=== PATIENT | female | born 1985 | race Caucasian/White ===

== ENCOUNTER 2023-03-27 14:18 | Inpatient (IN) | payer MEDICARE ==
[2023-03-27] MEDS ORDERED: HYDROCORTISONE SUCCINATE 100 MG/2 ML VIAL IV STA ×2 (14:43→15:16)
[2023-03-27 15:37] LABS: ALT 33 U/L (4-34); AST 37 U/L (14-36); African American GFR (CKD) >90 (>60 ml/min/1.73 sqM); Albumin 4.3 g/dL (3.5-5.0); Alcohol <10 mg/dL; Alkaline Phosphatase 82 U/L (38-126); Anion Gap 14 mmol/L; Blood Urea Nitrogen 12 mg/dL (7-17); Calcium 9.6 mg/dL (8.4-10.2); Carbon Dioxide 16 mmol/L (22-30); Chloride 108 mmol/L (98-107); Creatine Kinase 53 U/L (30-135); Glucose 132 mg/dL (74-99); Magnesium 1.3 mg/dL (1.6-2.3); Non-African American GFR(CKD) >90 (>60 ml/min/1.73 sqM); Potassium 3.9 mmol/L (3.5-5.1); Sodium 138 mmol/L (137-145); Total Protein 7.5 g/dL (6.3-8.2)
[2023-03-27 15:45] LABS: Basophils % (A) 0 %; Eosinophils % (A) 0 %; HCT 47.8 % (34.0-46.0); HGB 16.1 gm/dL (11.4-16.0); Lymphocytes # (A) 0.2 k/uL (1.0-4.8); Lymphocytes % (A) 3 %; MCH 30.8 pg (25.0-35.0); MCHC 33.7 g/dL (31.0-37.0); MCV 91.4 fL (80.0-100.0); Mean Platelet Volume 7.6; Monocytes # (A) 0.2 k/uL (0-1.0); Monocytes % (A) 3 %; Neutrophils # (A) 6.8 k/uL (1.3-7.7); Neutrophils % (A) 94 %; Platelet Count 292 k/uL (150-450); RBC 5.23 m/uL (3.80-5.40); RDW 15.6 % (11.5-15.5); WBC 7.3 k/uL (3.8-10.6)
--- NOTE | 2023-03-27 15:55 | XR ---
EXAMINATION TYPE: XR chest 2V DATE OF EXAM: 03/27/2023 3:27 PM CLINICAL INDICATION:Female, 37 years old with history of Weakness; PHH COMPARISON: None TECHNIQUE: XR chest 2V Frontal and lateral views of the chest. FINDINGS: Lungs/Pleura: There is no evidence of pleural effusion, focal consolidation, or pneumothorax. Pulmonary vascularity: Unremarkable. Heart/mediastinum: Cardiomediastinal silhouette is unremarkable. Musculoskeletal: No acute osseous pathology. IMPRESSION: No acute cardiopulmonary disease/process.
[2023-03-27 16:29] LABS: Toxic Vacuolation Present
--- NOTE | 2023-03-27 16:30 | ED ---
Weakness HPI - General Chief complaint: Weakness Stated complaint: MS Exacerbation Time Seen by Provider: 03/27/23 14:25 Source: patient, RN notes reviewed Mode of arrival: EMS - History of Present Illness Initial comments: 37-year-old female history of multiple sclerosis who states she had the onset this morning of generalized weakness and numbness to both upper and lower extr emities. She denies any fevers chills sweats or dysuria or other symptoms but she does feel this is exacerbation of her MS. No trauma no other complaints this time patient states she is from out [facility] Complaint: generalized weakness, numbness - Related Data Home Medications Medication Instructions Recorded Confirmed DULoxetine HCL [Cymbalta] 120 mg PO DAILY 03/27/23 03/27/23 Allergies Allergy/AdvReac Type Severity Reaction Status Date / Time acetaminophen AdvReac Rapid Verified 03/27/23 20:05 [From Excedrin Extra Heart Rate Strength] aspirin AdvReac Rapid Verified 03/27/23 20:05 [From Excedrin Extra Heart Rate Strength] caffeine AdvReac Rapid Verified 03/27/23 20:05 [From Excedrin Extra Heart Rate Strength] oseltamivir [From Tamiflu] AdvReac Rapid Verified 03/27/23 20:05 Heart Rate Review of Systems ROS Statement: Those systems with pertinent positive or pertinent negative responses have been documented in the HPI. ROS Other: All systems not noted in ROS Statement are negative. Past Medical History Additional Past Medical History / Comment(s): MS Past Surgical History: Section Additional Past Surgical History / Comment(s): hernia Past Psychological History: Anxiety, Depression Smoking Status: Current every day smoker Past Alcohol Use History: Rare Past Drug Use History: Heroin General Exam - General Exam Comments Initial Comments: Is a well-developed obese female who is awake alert but lethargic General appearance: alert, lethargic Head exam: Present: atraumatic, normocephalic, normal inspection Eye exam: Present: normal appearance, PERRL, EOMI. Absent: scleral icterus, conjunctival injection, periorbital swelling ENT exam: Present: mucous membranes dry Neck exam: Present: normal inspection, full ROM, other. Absent: tenderness, meningismus, lymphadenopathy Respiratory exam: Present: normal lung sounds bilaterally. Absent: respiratory distress, wheezes, rales, rhonchi, stridor Cardiovascular Exam: Present: normal rhythm, tachycardia (ALLERGYorbruits), normal heart sounds. Absent: systolic murmur, diastolic murmur, rubs, gallop, clicks GI/Abdominal exam: Present: soft, normal bowel sounds. Absent: distended, tenderness, guarding, rebound, rigid Extremities exam: Present: normal inspection, full ROM, normal capillary refill. Absent: tenderness, pedal edema, joint swelling, calf tenderness Back exam: Present: normal inspection Neurological exam: Present: alert, oriented X3, CN II-XII intact, other (Patient states her extremities are weak but she was noted by nursing staff to be able to move all extremities) Psychiatric exam: Present: normal mood, flat affect Skin exam: Present: warm, dry, intact, normal color. Absent: rash Course Vital Signs 03/27/23 03/27/23 14:21 17:00 Temperature 98.6 F Pulse Rate 113 H Respiratory 18 16 Rate Blood Pressure 125/80 121/89 O2 Sat by Pulse 95 Oximetry Medical Decision Making - Medical Decision Making I did discuss the findings with the patient and friend was present also with Dr. Kamara the patient does demonstrate evidence of acute exacerbation of multiple sclerosis she will be admitted for inpatient evaluation and treatment.Was pt. sent in by a medical professional or institution (, PA, EVENT SPECIALIST FOOD DEMONSTRATOR, urgent care, hospital, or penitentiary...) When possible be specific @ -No Did you speak to anyone other than the patient for history (EMS, parent, family, police, friend...)? What history was obtained from this source @ -Or medics upon arrival Did you review nursing and triage notes (agree or disagree)? Why? @ -I reviewed and agree with nursing and triage notes Were old charts reviewed (outside hosp., previous admission, EMS record, old EKG, old radiological studies, urgent care reports/EKG's, penitentiary records)? Report findings @ -No old charts were available. Differential Diagnosis (chest pain, altered mental status, abdominal pain women, abdominal pain men, vaginal bleeding, weakness, fever, dyspnea, syncope, headache, dizziness, GI bleed, back pain, seizure, CVA, palpatations, mental health, musculoskeletal)? @ -MS exacerbation EKG interpreted by me (3pts min.). @ -Not done X-rays interpreted by me (1pt min.). @ -None done CT interpreted by me (1pt min.). @ -None done U/S interpreted by me (1pt. min.). @ -None done What testing was considered but not performed or refused? (CT, X-rays, U/S, labs)? Why? @ -None What meds were considered but not given or refused? Why? @ -None Did you discuss the management of the patient with other professionals (professionals i.e. , PA, EVENT SPECIALIST FOOD DEMONSTRATOR, lab, RT, psych nurse, certified social workers in health care, concrete truck driver, teacher, chief green officer, immigration case manager)? Give summary @ -Dr. Kamara Was smoking cessation discussed for >3mins.? @ -No Was critical care preformed (if so, how long)? @ -No Were there social determinants of health that impacted care today? How? (Homelessness, low income, unemployed, alcoholism, drug addiction, transportation, low edu. Level, literacy, decrease access to med. care, [facility], rehab)? @ -No Was there de-escalation of care discussed even if they declined (Discuss DNR or withdrawal of care, Hospice)? DNR status @ -No What co-morbidities impacted this encounter? (DM, HTN, Smoking, COPD, CAD, Cancer, CVA, ARF, Chemo, Hep., AIDS, mental health diagnosis, sleep apnea, morbid obesity)? @ -None Was patient admitted / discharged? Hospital course, mention meds given and route, prescriptions, significant lab abnormalities, going to OR and other pert inent info. @ -hospital course the patient was admitted for inpatient IV steroids and evaluation Undiagnosed new problem with uncertain prognosis? @ -No Drug Therapy requiring intensive monitoring for toxicity (Heparin, Nitro, Insulin, Cardizem)? @ -No Were any procedures done? @ -No Diagnosis/symptom? @ -Acute exacerbation of multiple sclerosis, hypomagnesemia Acute, or Chronic, or Acute on Chronic? @ -Acute on chronic Uncomplicated (without systemic symptoms) or Complicated (systemic symptoms)? @ -Located Side effects of treatment? @ -No Exacerbation, Progression, or Severe Exacerbation? @ -No Poses a threat to life or bodily function? How? (Chest pain, [place], HI, pneumonia, PE, COPD, DKA, ARF, appy, cholecystitis, CVA, Diverticulitis, Homicidal, Suicidal, threat to staff... and all critical care pts) @ -Potential - Lab Data Result diagrams: 03/27/23 14:50 03/27/23 14:50 Lab Results 03/27/23 03/27/23 03/27/23 Range/Units 14:50 14:50 14:50 WBC 7.3 (3.8-10.6) k/uL RBC 5.23 (3.80-5.40) m/uL Hgb 16.1 H (11.4-16.0) gm/dL Hct 47.8 H (34.0-46.0) % MCV 91.4 (80.0-100.0) fL MCH 30.8 (25.0-35.0) pg MCHC 33.7 (31.0-37.0) g/dL RDW 15.6 H (11.5-15.5) % Plt Count 292 (150-450) k/uL MPV 7.6 Neutrophils % 94 % Lymphocytes % 3 % Monocytes % 3 % Eosinophils % 0 % Basophils % 0 % Neutrophils # 6.8 (1.3-7.7) k/uL Lymphocytes # 0.2 L (1.0-4.8) k/uL Monocytes # 0.2 (0-1.0) k/uL Eosinophils # 0.0 (0-0.7) k/uL Basophils # 0.0 (0-0.2) k/uL Manual Slide Review Performed Toxic Vacuolation Present Sodium 138 (137-145) mmol/L Potassium 3.9 (3.5-5.1) mmol/L Chloride 108 H (98-107) mmol/L Carbon Dioxide 16 L (22-30) mmol/L Anion Gap 14 mmol/L BUN 12 (7-17) mg/dL Creatinine 0.68 (0.52-1.04) mg/dL Est GFR (CKD-EPI)AfAm >90 (>60 ml/min/1.73 sqM) Est GFR (CKD-EPI)NonAf >90 (>60 ml/min/1.73 sqM) Glucose 132 H (74-99) mg/dL Plasma Lactic Acid Álvaro (0.7-2.0) mmol/L Calcium 9.6 (8.4-10.2) mg/dL Magnesium 1.3 L (1.6-2.3) mg/dL Total Bilirubin 1.0 (0.2-1.3) mg/dL AST 37 H (14-36) U/L ALT 33 (4-34) U/L Alkaline Phosphatase 82 (38-126) U/L Creatine Kinase 53 (30-135) U/L Troponin I (0.000-0.034) ng/mL Total Protein 7.5 (6.3-8.2) g/dL Albumin 4.3 (3.5-5.0) g/dL TSH 0.691 (0.465-4.680) mIU/L Urine Color Yellow Urine Appearance Clear (Clear) Urine pH 5.0 (5.0-8.0) Ur Specific [place] 1.012 (1.001-1.035) Urine Protein Negative (Negative) Urine Glucose (UA) Negative (Negative) Urine Ketones Trace H (Negative) Urine Blood Moderate H (Negative) Urine Nitrite Negative (Negative) Urine Bilirubin Negative (Negative) Urine Urobilinogen <2.0 (<2.0) mg/dL Ur Leukocyte Esterase Small H (Negative) Urine RBC 22 H (0-5) /hpf Urine WBC 7 H (0-5) /hpf Ur Squamous Epith Cells 1 (0-4) /hpf Urine Mucus Rare H (None) /hpf Urine Opiates Screen Not Detected (NotDetected) Ur Oxycodone Screen Not Detected (NotDetected) Urine Methadone Screen Not Detected (NotDetected) Ur Propoxyphene Screen Not Detected (NotDetected) Ur Barbiturates Screen Not Detected (NotDetected) U Tricyclic Antidepress Not Detected (NotDetected) Ur Phencyclidine Scrn Not Detected (NotDetected) Ur Amphetamines Screen Not Detected (NotDetected) U Methamphetamines Scrn Not Detected (NotDetected) U Benzodiazepines Scrn Not Detected (NotDetected) Urine Cocaine Screen Not Detected (NotDetected) U Marijuana (THC) Screen Detected H (NotDetected) Serum Alcohol <10 mg/dL 03/27/23 03/27/23 Range/Units 14:50 14:50 WBC (3.8-10.6) k/uL RBC (3.80-5.40) m/uL Hgb (11.4-16.0) gm/dL Hct (34.0-46.0) % MCV (80.0-100.0) fL MCH (25.0-35.0) pg MCHC (31.0-37.0) g/dL RDW (11.5-15.5) % Plt Count (150-450) k/uL MPV Neutrophils % % Lymphocytes % % Monocytes % % Eosinophils % % Basophils % % Neutrophils # (1.3-7.7) k/uL Lymphocytes # (1.0-4.8) k/uL Monocytes # (0-1.0) k/uL Eosinophils # (0-0.7) k/uL Basophils # (0-0.2) k/uL Manual Slide Review Toxic Vacuolation Sodium (137-145) mmol/L Potassium (3.5-5.1) mmol/L Chloride (98-107) mmol/L Carbon Dioxide (22-30) mmol/L Anion Gap mmol/L BUN (7-17) mg/dL Creatinine (0.52-1.04) mg/dL Est GFR (CKD-EPI)AfAm (>60 ml/min/1.73 sqM) Est GFR (CKD-EPI)NonAf (>60 ml/min/1.73 sqM) Glucose (74-99) mg/dL Plasma Lactic Acid Álvaro 1.8 (0.7-2.0) mmol/L Calcium (8.4-10.2) mg/dL Magnesium (1.6-2.3) mg/dL Total Bilirubin (0.2-1.3) mg/dL AST (14-36) U/L ALT (4-34) U/L Alkaline Phosphatase (38-126) U/L Creatine Kinase (30-135) U/L Troponin I <0.012 (0.000-0.034) ng/mL Total Protein (6.3-8.2) g/dL Albumin (3.5-5.0) g/dL TSH (0.465-4.680) mIU/L Urine Color Urine Appearance (Clear) Urine pH (5.0-8.0) Ur Specific [place] (1.001-1.035) Urine Protein (Negative) Urine Glucose (UA) (Negative) Urine Ketones (Negative) Urine Blood (Negative) Urine Nitrite (Negative) Urine Bilirubin (Negative) Urine Urobilinogen (<2.0) mg/dL Ur Leukocyte Esterase (Negative) Urine RBC (0-5) /hpf Urine WBC (0-5) /hpf Ur Squamous Epith Cells (0-4) /hpf Urine Mucus (None) /hpf Urine Opiates Screen (NotDetected) Ur Oxycodone Screen (NotDetected) Urine Methadone Screen (NotDetected) Ur Propoxyphene Screen (NotDetected) Ur Barbiturates Screen (NotDetected) U Tricyclic Antidepress (NotDetected) Ur Phencyclidine Scrn (NotDetected) Ur Amphetamines Screen (NotDetected) U Methamphetamines Scrn (NotDetected) U Benzodiazepines Scrn (NotDetected) Urine Cocaine Screen (NotDetected) U Marijuana (THC) Screen (NotDetected) Serum Alcohol mg/dL Disposition Clinical Impression: Multiple sclerosis exacerbation, Hypomagnesemia syndrome, Weakness Disposition: ADMITTED IP TO THIS [facility] Condition: Fair Referrals: None,Stated [Primary Care Provider] - 1-2 days Decision Date: 03/27/23 Decision Time: 19:30
[2023-03-27 17:42] LABS: Appearance,Urine Clear (Clear); Bilirubin,Urine Negative (Negative); Blood,Urine Moderate (Negative); Color,Urine Yellow; Glucose,Urine (UA) Negative (Negative); Ketones,Urine Trace (Negative); Leukocyte Esterase,Urine Small (Negative); Mucus,Urine Rare /hpf; Nitrite,Urine Negative (Negative); Protein,Urine Negative (Negative); RBC,Urine 22 /hpf (0-5); Specific Gravity,Urine 1.012 (1.001-1.035); Squamous Epithelial Cell,Urine 1 /hpf (0-4); Urobilinogen,Urine <2.0 mg/dL (<2.0); WBC,Urine 7 /hpf (0-5)
[2023-03-27 17:51] LABS: Amphetamine Screen,Urine Not Detected (NotDetected); Barbiturate Screen,Urine Not Detected (NotDetected); Benzodiazepines Screen,Urine Not Detected (NotDetected); Cocaine Screen,Urine Not Detected (NotDetected); Methadone Screen, Urine Not Detected (NotDetected); Opiate Screen,Urine Not Detected (NotDetected); Oxycodone Screen, Urine Not Detected (NotDetected); Phencyclidine Screen,Urine Not Detected (NotDetected); Tricyclic Antidepressant,Urine Not Detected (NotDetected); Urn Cannabinoid Scrn Detected (NotDetected)
[2023-03-27] MEDS ORDERED: ONDANSETRON 4 MG/2 ML VIAL IVP STA (18:57)
[2023-03-27] MEDS: MAGNESIUM SULFATE-D5W PMX 1 GM in DEXTROSE/WATER 1 100ML.BAG IVPB SCH ×2 (19:24→20:54)
[2023-03-27] MEDS ORDERED: NALOXONE 0.4 MG/ML 1 ML VIAL IV PRN (20:13)
[2023-03-27] MEDS: SODIUM CHLORIDE 0.9% 1,000 ML IV SCH (20:54)
--- NOTE | 2023-03-27 23:44 | P.HPIM ---
History of Present Illness H&P Date: 03/27/23 Patient is a 37-year-old female with a PMH of possible cirrhosis with chronic right sided weakness including right foot drop who presents to the emergency room with complaints of generalized weakness in particular of the right upper and lower extremities accompanied by numbness of the same side as well as myalgias. She reports this is similar to her prior MS flares. She reports originally being from [facility] but has been living in [place] for the past 2-3 years and is currently visiting her girlfriend in [place]. She reports not seeing a physician for more than 3 years and does not currently take any medications. Denied experiencing facial asymmetry, visual disturbances, speech impairment, chest pain, shortness of breath, fever, chills, cough. Chest x-ray in the emergency room was unremarkable. Laboratory evaluation magnesium of 1.3. Urine toxicology positive for marijuana with blood in the UA. ED documentation reviewed and case discussed with ED provider. Review of systems: Pertinent positives and negatives as discussed in HPI, a complete review of systems was performed and all other systems are negative. Physical examination: Vital signs reviewed General: non toxic, no distress, appears at stated age, obese Derm: no unusual rashes/lesions, warm Head: atraumatic, normocephalic, symmetric Eyes: EOMI, no lid lag, anicteric sclera, pupils equal round reactive to light ENT: Nose and ears atraumatic Neck: No cervical lymphadenopathy, trachea midline, supple Mouth: no lip lesion, mucus membranes moist Cardiovascular: S1S2 reg, no murmur, positive dorsalis pedis pulse bilateral, no edema Lungs: CTA bilateral, no rhonchi, no rales, no accessory muscle use Abdominal: soft, nontender to palpation, no guarding Ext: muscle strength 5 out of 5 in all 4 extremities grossly, no gross muscle atrophy, no contractures, Neuro: CN II-XI grossly intact, RUE strength 3/5, RLE strength 2/5 grossly, LUE and LLE strength 5/5 Psych: Alert, oriented, appropriate affect Assessment: Multiple sclerosis flare Hypomagnesemia Imaging: Chest x-ray in the emergency room was unremarkable. Data Review: Laboratory evaluation magnesium of 1.3. Urine toxicology positive for marijuana with blood in the UA. Plan: Status post hydrocortisone 900 mg IV in the emergency room Continue Solu-Medrol 500 mg IV daily Neurology consult Neuro checks Fall precautions PT consult Replace magnesium and monitor DVT prophylaxis: Lovenox subcu The patient is admitted with an anticipated greater than 2 midnight stay for evaluation of MS flare CODE STATUS: Full Code Discussed with: Patient Anticipated discharge place: Home Past Medical History Additional Past Medical History / Comment(s): MS Past Surgical History: Section Additional Past Surgical History / Comment(s): hernia Past Psychological History: Anxiety, Depression Smoking Status: Current every day smoker Past Alcohol Use History: Rare Past Drug Use History: Heroin Medications and Allergies Home Medications Medication Instructions Recorded Confirmed Type DULoxetine HCL [Cymbalta] 120 mg PO DAILY 03/27/23 03/27/23 History Allergies Allergy/AdvReac Type Severity Reaction Status Date / Time acetaminophen AdvReac Rapid Verified 03/27/23 20:05 [From Excedrin Extra Heart Rate Strength] aspirin AdvReac Rapid Verified 03/27/23 20:05 [From Excedrin Extra Heart Rate Strength] caffeine AdvReac Rapid Verified 03/27/23 20:05 [From Excedrin Extra Heart Rate Strength] oseltamivir [From Tamiflu] AdvReac Rapid Verified 03/27/23 20:05 Heart Rate Physical Exam Vitals: Vital Signs Temp Pulse Pulse Resp BP BP Pulse Ox 03/27/23 21:27 99.7 F H 104 H 16 117/78 92 L 03/27/23 20:43 98 19 112/82 93 L 03/27/23 17:00 16 121/89 03/27/23 14:21 98.6 F 113 H 18 125/80 95 Intake and Output 03/27/23 03/27/23 03/28/23 14:59 22:59 06:59 Other: Weight 104.326 kg Results CBC & Chem 7: 03/27/23 14:50 03/27/23 14:50 Labs: Abnormal Lab Results - Last 24 Hours (Table) 03/27/23 03/27/23 03/27/23 Range/Units 14:50 14:50 14:50 Hgb 16.1 H (11.4-16.0) gm/dL Hct 47.8 H (34.0-46.0) % RDW 15.6 H (11.5-15.5) % Lymphocytes # 0.2 L (1.0-4.8) k/uL Chloride 108 H (98-107) mmol/L Carbon Dioxide 16 L (22-30) mmol/L Glucose 132 H (74-99) mg/dL Magnesium 1.3 L (1.6-2.3) mg/dL AST 37 H (14-36) U/L Urine Ketones Trace H (Negative) Urine Blood Moderate H (Negative) Ur Leukocyte Esterase Small H (Negative) Urine RBC 22 H (0-5) /hpf Urine WBC 7 H (0-5) /hpf Urine Mucus Rare H (None) /hpf U Marijuana (THC) Screen Detected H (NotDetected)
[2023-03-28 04:51] LABS: HCT 42.6 % (34.0-46.0); MCH 30.6 pg (25.0-35.0); MCV 92.8 fL (80.0-100.0); Platelet Count 262 k/uL (150-450); RDW 15.4 % (11.5-15.5); WBC 21.2 k/uL (3.8-10.6)
[2023-03-28 05:01] LABS: African American GFR (CKD) >90 (>60 ml/min/1.73 sqM); Anion Gap 11 mmol/L; Blood Urea Nitrogen 13 mg/dL (7-17); Calcium 9.1 mg/dL (8.4-10.2); Carbon Dioxide 22 mmol/L (22-30); Chloride 106 mmol/L (98-107); Glucose 114 mg/dL (74-99); Magnesium 2.2 mg/dL (1.6-2.3); Non-African American GFR(CKD) >90 (>60 ml/min/1.73 sqM); Sodium 139 mmol/L (137-145)
[2023-03-28] MEDS: SODIUM CHLORIDE 0.9% 1,000 ML IV SCH ×3 (05:45→21:07)
[2023-03-28] MEDS: ENOXAPARIN 40 MG/0.4 ML SYRINGE SQ SCH (08:34)
[2023-03-28] MEDS: DULoxetine HCL 60 MG CAPSULE.DR PO SCH (08:34)
[2023-03-28] MEDS ORDERED: ACETAMINOPHEN TAB 325 MG TAB PO PRN (08:34)
[2023-03-28] MEDS ORDERED: methylPREDNISolone SOD SUCCIN 500 MG in SODIUM CHLORIDE 0.9% 100 ML IVPB SCH (09:00)
[2023-03-28] MEDS ORDERED: PROCHLORPERAZINE INJ 10 MG/2 ML VIAL IVP STA (11:06)
[2023-03-28] MEDS ORDERED: KETOROLAC 15 MG/ML 1 ML VIAL IVP STA (11:06)
[2023-03-28] MEDS ORDERED: diphenhydrAMINE 50 MG/ML 1 ML VIAL IVP STA (11:06)
--- NOTE | 2023-03-28 12:24 | P.CNNES ---
History of Present Illness Consult date: 03/28/23 Requesting physician: Maribel Kamara Reason for Consult: MS flare History of Present Illness: This is a 37-year-old woman with history of MS diagnosed about 19 years ago 9 any disease modifying therapy with residual right-sided weakness, anxiety and depression who presents the emergency department because of generalized weakness and worsening of the right side. Upon seeing the patient the patient was very dramatic and was emotional upon getting the history then later she was able to calm down and she stated that she has history of multiple sclerosis diagnosed 19 years ago in [place] and she was plaed on Mavenclad in 2019 and after that was not placed on any disease modifying therapy and she was notified she does not have to be according to the patient. She stated that she presented to the hospital because of generalized weakness and worsening of weakness over the right side over the last few days. She stated that the she moved from [place] to [place] in the last 1 week because of her girlfriend that. She was following up with the neurology team over [place] and the last time she was seen by them was a about a year ago. She said that she has anxiety and depression and she has not received her Xanax or Adderall and the last the 2 months and would not get refills. She smokes half a pack a day. Uses marijuana but denies any illicit drug use. Denies of any visual disturbance, difficulty hearing her words out. She denies of any suicidal or homicidal thoughts or plans. Some other workup during his hospital visit consisted of: White blood cell is within normal limits T-max is 99.7. Fahrenheit Sodium is 138, calcium is 9.6, CK level is 53, TSH is 0.691 HCG is noninfected Urinalysis is the leukocyte esterase small and a euro blood cells 7 Urine drug screen is marijuana detected in the serum alcohol was less than 10. Review of Systems Positive and negative as per HPI. Past Medical History Additional Past Medical History / Comment(s): MS History of Any Multi-Drug Resistant Organisms: None Reported Past Surgical History: Section Additional Past Surgical History / Comment(s): hernia Past Psychological History: Anxiety, Depression Smoking Status: Current every day smoker Past Alcohol Use History: Rare Past Drug Use History: Heroin Medications and Allergies Home Medications Medication Instructions Recorded Confirmed Type DULoxetine HCL [Cymbalta] 120 mg PO DAILY 03/27/23 03/27/23 History Allergies Allergy/AdvReac Type Severity Reaction Status Date / Time acetaminophen AdvReac Rapid Verified 03/27/23 20:05 [From Excedrin Extra Heart Rate Strength] aspirin AdvReac Rapid Verified 03/27/23 20:05 [From Excedrin Extra Heart Rate Strength] caffeine AdvReac Rapid Verified 03/27/23 20:05 [From Excedrin Extra Heart Rate Strength] oseltamivir [From Tamiflu] AdvReac Rapid Verified 03/27/23 20:05 Heart Rate Physical Examination - Vital Signs Vital Signs: Vital Signs Temp Pulse Pulse Resp BP BP Pulse Ox 03/28/23 07:40 98.2 F 94 17 102/60 93 L 03/28/23 02:00 97.6 F 90 16 101/68 95 03/27/23 21:27 99.7 F H 104 H 16 117/78 92 L 03/27/23 20:43 98 19 112/82 93 L 03/27/23 17:00 16 121/89 03/27/23 14:21 98.6 F 113 H 18 125/80 95 Intake and Output 03/27/23 03/28/23 03/28/23 22:59 06:59 14:59 Intake Total 30 450 Balance 30 450 Intake: Intake, IV Titration 390 Amount Sodium Chloride 0.9% 1, 390 000 ml @ 130 mls/hr IV . Q7H42M [facility] Rx#:[id number] Oral 30 60 Other: Voiding Method Diaper # Voids 1 Weight 104.326 kg GENERAL: The patient is lying in bed and is not in acute distress. Is emotional upon performing exam. NEUROLOGICAL: Somewhat limited because of her cooperation. Higher mental function: The patient is awake, alert, oriented to self, place and time. Patient is following commands. No aphasia and no neglect. Cranial nerves: The pupils are round, equal and reactive to light and accommodation. Visual vizcarra are full to confrontation throughout. Extraocular movement is intact no nystagmus is noted. Facial sensation is normal to touch throughout. The facial strength is normal throughout. Hearing is normal bilaterally to hand rub. Tongue is midline and moved [id number] without any difficulty. No dysarthria is noted. Shoulder shrug is normal bilaterally. Motor: Patient showing effort-related on examination. Initially she kicked the the blanket very strong on the left more than the right and she didn't the with good strength but upon examining the the strength she had weakness in the lowers and and was lifting up above gravity left more than right but again showing a lot of effort related and again when the as stated earlier when the blanket the was covering her she was able to kick the blanket very hard to move out of the way. As well as she showing effort-related upon examining the uppers but listed above gravity but the right is worse than the left. Normal tone and bulk. Cerebellum: with [id number] patient showing inconsistency of tremors and on e-time it's over the right as normal on the left but another time it's abnormal on the left and normal on the right. Sensation: Decrease sensation over the lowers over the right side to touch. Reflexes (right/left): 2+. Plantars is upgoing over the right and mute on left. Results - Laboratory Findings CBC and BMP: 03/28/23 04:32 03/28/23 04:32 Abnormal Lab Findings: Abnormal Labs 03/27/23 03/27/23 03/27/23 14:50 14:50 14:50 WBC Hgb 16.1 H Hct 47.8 H RDW 15.6 H Lymphocytes # 0.2 L Chloride 108 H Carbon Dioxide 16 L Glucose 132 H Magnesium 1.3 L AST 37 H Urine Ketones Trace H Urine Blood Moderate H Ur Leukocyte Esterase Small H Urine RBC 22 H Urine WBC 7 H Urine Mucus Rare H U Marijuana (THC) Screen Detected H 03/28/23 03/28/23 04:32 04:32 WBC 21.2 H Hgb Hct RDW Lymphocytes # Chloride Carbon Dioxide Glucose 114 H Magnesium AST Urine Ketones Urine Blood Ur Leukocyte Esterase Urine RBC Urine WBC Urine Mucus U Marijuana (THC) Screen Assessment and Plan Assessment: This is a 37 y/o woman with history of reported MS about 19 years ago in [place] who was on Mavenclad in 2019 then was told she did not require to be on disease modifying therapy with residual right hemiparesis, depression and anxiety who presents because of generalized weakness and mostly worsening right sided weakness. Also states not getting her psychiatric medication for the past 2 months. Generalized weakness and reported weakness of right side: Rule out exacerbation of MS. On examination there is effort related and showing inconsistency which seems more functional History of MS diagnosed about 2019 and not on any medication since 2019 since bein on Mavenclad Depression and Anxiety and stated has not received refills for past two months. Plan: I spoke with the primary team and will obtain CT of the head as well as CT cervical spine. If negative then we'll pursue an MRI the brain with and without. In the ED she received 900 mg of hydrocortisone once. There was started on IV Solu-Medrol 500 mg daily and I'll change that to 500 mg twice a day and to be the total dose of 3 days. I ordered vitamin B12, folate, hemoglobin A1c and Vitamin D level. Physical therapy was consulted and I consulted occupation therapy Continue neuro checks I recommend the patient to follow-up with her neurologist and psychiatrist as an outpatient. will defer the GI prophylaxis and the glucose monitoring to the primary team because of IV steroids. we'll defer the rest of the medical management to the primary team Plan discussed with the patient, her nurse and N.P. from primary team. Thank you for the consultation Dr. Valentin will start neurology service tomorrow a.m. Time with Patient: Greater than 30
--- NOTE | 2023-03-28 13:21 | CT ---
EXAMINATION TYPE: CT brain cspine wo con CT DLP: 1859.0 mGycm, Automated exposure control for dose reduction was used. DATE OF EXAM: 03/28/2023 12:52 PM COMPARISON: None. CLINICAL INDICATION:Female, 37 years old with history of intractable headache; intractable MARSHALL TECHNIQUE: Brain: Multiple axial CT images of the brain were obtained without IV contrast. Cspine: Axial CT images from the skull base to the inferior aspect of T2 we obtained without intraven ous contrast. Coronal and sagittal reformatted images were also reviewed. FINDINGS: Brain: Extra-axial spaces: No abnormal extra-axial fluid collections. Ventricular system: Within normal limits Cerebral parenchyma: No acute intraparenchymal hemorrhage or mass effect. The floyd-white junction is well differentiated. Cerebellum: Unremarkable. Mass effect: No evidence of midline shift. Intracranial vasculature: unremarkable Soft tissues: Normal. Calvarium/osseous structures: No depressed skull fracture. Paranasal sinuses and mastoid air cells: Clear. Visualized orbits: Orbital contents are intact. Cervical spine: Fracture: None. Osseous structures: Minimal osteophyte formation and facet uncovertebral joint arthropathy. Vertebral alignment: Within normal limits. Spinal canal/Neural Foramina: No evidence of significant spinal canal narrowing. No evidence for sign ificant neural foraminal stenosis. Neck soft tissues: Prevertebral soft tissues are within normal limits. Other: The airway is patent. The lung apices are clear. IMPRESSION: 1. No acute intracranial process. 2. No evidence of cervical spine fracture. 3. Mild multilevel degenerative disc disease.
--- NOTE | 2023-03-28 15:43 | P.PN ---
Subjective Progress Note Date: 03/28/23 Hospital course: Patient is a very pleasant 37-year-old female with a past medical history of multiple sclerosis with chronic right-sided weakness and foot drop not on any medications, anxiety, and depression. She presented to the emergency department with complaints of worsening generalized weakness in particular to her right upper and lower extremities accompanied by numbness and myalgias. Patient reported the symptoms are similar to her previous MS exacerbation/flares. She underwent full evaluation in the emergency department. Labs completed and revi ewed. CBC showing elevated hemoglobin of 16.1 otherwise no significant abnormalities. BMP showing hyperchloremia with chloride of 108 and hypocarbia with bicarb of 16. Liver profile showing elevated AST of 37. Magnesium was low at 1.3. Troponin negative at less than 0.012. TSH normal findings is 0.691. Urinalysis positive for trace ketones, blood, and 22 rbc's negative for infection with only 7 WBCs. Urine drug screen positive for marijuana otherwise negative. Serum alcohol level was negative at less than 10. Chest x-ray was negative for acute cardiopulmonary process. Physical exam: Patient seen and fully evaluated at bedside. Patient will reports having the worst headache of her life accompanied by pain "everywhere". Patient reports generalized body myalgias and pains throughout her entire body with generalized weakness and numbness worse on right lower extremity. Vital signs reviewed and stable. General: Nontoxic, no distress and appears stated age. Derm: Skin warm and dry, normal coloration for ethnicity. Head: Atraumatic, normocephalic and symmetric. Eyes: EOMs intact, no lid lag, and anicteric sclera Mouth: no lip lesions, mucus membranes moist Cardiovascular: regular rate and rhythm with normal S1S2, no murmur, positive posterior tibial pulses bilaterally, and cap refill < 2 seconds. Lungs: Respirations even, regular, and unlabored on room air. Lungs CTA bilaterally, no rhonchi, no rales, no wheezing, and no accessory muscle usage. Abdominal: soft, nontender to palpation, no guarding, no appreciable org anomegaly Ext:. No gross muscle atrophy, no edema, no contractures. Movement, sensation, and strength equal to bilateral upper extremities and appears normal left lower extremity. Patient reports minimal sensation to right lower extremity and inability to move. Neuro: Speech clear, face symmetrical and CN II-XII grossly intact with no noted focal neuro deficits Psych: Alert and oriented to person, place, time, and situation. Appropriate and pleasant affect. Assessment and Plan of Care: Generalized pain/myalgias accompanied by numbness and weakness worse on right side, rule out MS exacerbation Intractable headache Anxiety with depression -Patient to continue Solu-Medrol 500 mg IVPB every 12 hours. -Neurology consulted and discussed plan of care, recommending MRI brain with and without contrast. -Continue Neuro checks every 4 hours -Continue Fall precautions -Order placed for CT head -Consult physical and occupational therapy. Hypomagnesemia Initial magnesium was 1.3 Patient received magnesium sulfate 2 g IVPB with repeat magnesium 2.2. Order placed for stat serum hCG, and upon follow-up as negative. CODE STATUS: Full code DVT prophylaxis: Lovenox Discussed with: Patient and RN Anticipated discharge date: Clinical course to determine Anticipated discharge place: Home Patient was seen independently by Nurse Pracitioner. This document was prepared using [employer] dictation software. Please allow for errors in meteorologist in charge, while rare they do occur. Rolf Yao NP rendered care for this patient independently, reviewed the findings and plan as documented in the note above. I did not physically speak with or examine the patient on this date. Objective - Vital Signs Vital signs: Vital Signs Temp 98.2 F 03/28/23 07:40 Pulse 94 03/28/23 07:40 Resp 17 03/28/23 07:40 BP 102/60 03/28/23 07:40 Pulse Ox 93 L 03/28/23 07:40 FiO2 Intake & Output 03/27/23 03/28/23 03/28/23 18:59 06:59 18:59 Intake Total 480 Balance 480 Weight 104.326 kg 104.326 kg Intake: Intake, IV Titration 390 Amount Sodium Chloride 0.9% 1, 390 000 ml @ 130 mls/hr IV . Q7H42M [facility] Rx#:[id number] Oral 90 - Labs CBC & Chem 7: 03/29/23 06:21 03/29/23 06:21 Labs: Abnormal Lab Results - Last 24 Hours (Table) 03/27/23 03/27/23 03/27/23 Range/Units 14:50 14:50 14:50 WBC (3.8-10.6) k/uL Hgb 16.1 H (11.4-16.0) gm/dL Hct 47.8 H (34.0-46.0) % RDW 15.6 H (11.5-15.5) % Lymphocytes # 0.2 L (1.0-4.8) k/uL Chloride 108 H (98-107) mmol/L Carbon Dioxide 16 L (22-30) mmol/L Glucose 132 H (74-99) mg/dL Magnesium 1.3 L (1.6-2.3) mg/dL AST 37 H (14-36) U/L Urine Ketones Trace H (Negative) Urine Blood Moderate H (Negative) Ur Leukocyte Esterase Small H (Negative) Urine RBC 22 H (0-5) /hpf Urine WBC 7 H (0-5) /hpf Urine Mucus Rare H (None) /hpf U Marijuana (THC) Screen Detected H (NotDetected) 03/28/23 03/28/23 Range/Units 04:32 04:32 WBC 21.2 H (3.8-10.6) k/uL Hgb (11.4-16.0) gm/dL Hct (34.0-46.0) % RDW (11.5-15.5) % Lymphocytes # (1.0-4.8) k/uL Chloride (98-107) mmol/L Carbon Dioxide (22-30) mmol/L Glucose 114 H (74-99) mg/dL Magnesium (1.6-2.3) mg/dL AST (14-36) U/L Urine Ketones (Negative) Urine Blood (Negative) Ur Leukocyte Esterase (Negative) Urine RBC (0-5) /hpf Urine WBC (0-5) /hpf Urine Mucus (None) /hpf U Marijuana (THC) Screen (NotDetected)
[2023-03-28] MEDS: methylPREDNISolone SOD SUCCIN 500 MG in SODIUM CHLORIDE 0.9% 100 ML IVPB SCH (21:06)
[2023-03-29] MEDS: SODIUM CHLORIDE 0.9% 1,000 ML IV SCH ×2 (05:24→15:18)
[2023-03-29] MEDS: methylPREDNISolone SOD SUCCIN 500 MG in SODIUM CHLORIDE 0.9% 100 ML IVPB SCH ×2 (09:33→20:49)
[2023-03-29] MEDS: ENOXAPARIN 40 MG/0.4 ML SYRINGE SQ SCH (09:34)
[2023-03-29] MEDS: DULoxetine HCL 60 MG CAPSULE.DR PO SCH (09:34)
[2023-03-29 11:03] LABS: HCT 40.2 % (37.2-46.3); HGB 13.2 g/dL (12.0-15.0); MCH 30.3 pg (27.0-32.0); MCHC 32.8 g/dL (32.0-37.0); MCV 92.4 FL (80.0-97.0); Mean Platelet Volume 9.5 FL (9.5-12.2); NRBC Per 100 WBC 0 X 10*3/uL (0.00-0.01); Platelet Count 232 X 10*3/uL (140-440); RBC 4.35 X 10*6/uL (4.10-5.20); RDW 15.9 % (11.5-14.5); WBC 15.45 X 10*3/uL (4.50-10.00)
[2023-03-29 11:13] LABS: ALT 42 U/L (8-44); AST 34 U/L (13-35); Albumin 3.6 g/dL (3.8-4.9); Alkaline Phosphatase 65 U/L (41-126); BUN/Creat Ratio 22.71 Ratio (12.00-20.00); Blood Urea Nitrogen 15.9 mg/dL (9.0-27.0); Carbon Dioxide 19.1 mmol/L (21.6-31.8); Chloride 107 mmol/L (96-109); Globulin 2.4 g/dL (1.6-3.3); Glucose 142 mg/dL (70-110); Magnesium 1.9 mg/dL (1.5-2.4); Potassium 4.4 mmol/L (3.5-5.5); Sodium 139 mmol/L (135-145); Total Bilirubin <0.2 mg/dL (0.3-1.2)
--- NOTE | 2023-03-29 13:03 | P.PN ---
Subjective Progress Note Date: 03/29/23 Patient initially seen by Dr. Jorden Pierson. Please refer to his note for details. Patient is a 37-year-old female with history of multiple sclerosis, currently not on any disease modifying agents, has MS since 2019. She has previously tried Mavenclad. She has a lot of psych issues, who presents with subjective generalized and worsening right-sided weakness. Dr. Pierson felt it was functional. Patient is on prednisone. Awaiting MRI of the brain. Patient states that today is the first that she was able to get out of bed, make 3-4 steps to the commode. Patient is on steroids. She continues to have weakness of the right side of the body, with numbness. Patient says that all her medical records are in [facility], but she has moved to [place]. She is here for visiting some friends. She is planning to go back to [place] from [place]. Objective - Vital Signs Vital signs: Vital Signs Temp 97.8 F 03/29/23 07:22 Pulse 99 03/29/23 07:22 Resp 18 03/29/23 07:22 BP 130/94 03/29/23 07:22 Pulse Ox 97 03/29/23 07:22 FiO2 Intake & Output 03/28/23 03/29/23 03/29/23 18:59 06:59 18:59 Output Total 150 Balance -150 Output: Urine 150 Other: Voiding Method Diaper Diaper Bedside Commode External Catheter Diaper # Voids 1 2 # Bowel Movements 1 - Exam Patient's mental status, speech and language functions are normal. Her speech is slightly slurred because of tongue pierced. Cranial nerves are normal. Visual vizcarra are full. No neglect. Face is symmetric. Sensory slightly decreased in the right side of the face as compared to the left. On muscle strength testing, patient has right pronation, with mild right elbow flexion. The strength is (right/left) deltoid 5/5, biceps 5/5, triceps 5/5, gr ip 5-/5, hip flexion 1-2/4+, ankle dorsiflexion 0/5, knee extension 4/5. Sensory to touch is decreased in the right arm and leg as compared to the left. Cerebellar function showed ataxia for [id number] testing on the right. Cannot perform with the leg. - Labs CBC & Chem 7: 03/29/23 06:21 03/29/23 06:21 Labs: Abnormal Lab Results - Last 24 Hours (Table) 03/28/23 03/28/23 03/29/23 Range/Units 04:32 04:32 06:21 WBC 15.45 H (4.50-10.00) X 10*3/uL RDW 15.9 H (11.5-14.5) % Carbon Dioxide (21.6-31.8) mmol/L Anion Gap (4.00-12.00) mmol/L BUN/Creatinine Ratio (12.00-20.00) Ratio Glucose (70-110) mg/dL Total Bilirubin (0.3-1.2) mg/dL Total Protein (6.2-8.2) g/dL Albumin (3.8-4.9) g/dL Albumin/Globulin Ratio (1.60-3.17) Ratio Vitamin B12 <150.0 L (200.0-944.0) pg/mL Folate <2.00 L (4.40-31.00) ng/mL 03/29/23 Range/Units 06:21 WBC (4.50-10.00) X 10*3/uL RDW (11.5-14.5) % Carbon Dioxide 19.1 L (21.6-31.8) mmol/L Anion Gap 12.90 H (4.00-12.00) mmol/L BUN/Creatinine Ratio 22.71 H (12.00-20.00) Ratio Glucose 142 H (70-110) mg/dL Total Bilirubin <0.2 L (0.3-1.2) mg/dL Total Protein 6.0 L (6.2-8.2) g/dL Albumin 3.6 L (3.8-4.9) g/dL Albumin/Globulin Ratio 1.50 L (1.60-3.17) Ratio Vitamin B12 (200.0-944.0) pg/mL Folate (4.40-31.00) ng/mL Assessment and Plan Assessment: This is a 37 y/o woman with history of reported MS about 19 years ago in [place] who was on Mavenclad in 2019 then was told she did not require to be on disease modifying therapy with residual right hemiparesis, depression and anxiety who presents because of generalized weakness and mostly worsening right sided weakness. Also states not getting her psychiatric medication for the past 2 months. Generalized weakness and reported weakness of right side: Probable exacerbation of MS. History of MS diagnosed about 2019 and not on any medication since 2019 since bein on Mavenclad Depression and Anxiety and stated has not received refills for past two months. Severe vitamin B12 deficiency Folate deficiency Marijuana use Plan: Await MRI of the brain with and without contrast. In the ED she received 900 mg of hydrocortisone once. There in the ER was started on IV Solu-Medrol [address] Pierson changed that to 500 mg twice a day and to be the total dose of 3 days. Vitamin B12 < 150, folate < 2.0, hemoglobin A1c 5.9 and Vitamin D level pending. Patient will be started on vitamin B12 1000 g IM for 3 days and then orally daily and folate 1 mg orally daily. Physical therapy and occupational therapy Continue neuro checks I recommend the patient to follow-up with her neurologist and psychiatrist as an outpatient. will defer the GI prophylaxis and the glucose monitoring to the primary team because of IV steroids. we'll defer the rest of the medical management to the primary team Neurology will follow.
[2023-03-29] MEDS ORDERED: KETOROLAC 15 MG/ML 1 ML VIAL IVP PRN (15:04)
--- NOTE | 2023-03-29 15:08 | P.PN ---
Subjective Progress Note Date: 03/29/23 Hospital course: Patient is a very pleasant 37-year-old female with a past medical history of multiple sclerosis with chronic right-sided weakness and foot drop not on any medications, anxiety, and depression. She presented to the emergency department with complaints of worsening generalized weakness in particular to her right upper and lower extremities accompanied by numbness and myalgias. Patient reported the symptoms are similar to her previous MS exacerbation/flares. She underwent full evaluation in the emergency department. Labs completed and revi ewed. CBC showing elevated hemoglobin of 16.1 otherwise no significant abnormalities. BMP showing hyperchloremia with chloride of 108 and hypocarbia with bicarb of 16. Liver profile showing elevated AST of 37. Magnesium was low at 1.3. Troponin negative at less than 0.012. TSH normal findings is 0.691. Urinalysis positive for trace ketones, blood, and 22 rbc's negative for infection with only 7 WBCs. Urine drug screen positive for marijuana otherwise negative. Serum alcohol level was negative at less than 10. Chest x-ray was negative for acute cardiopulmonary process. Serum hCG negative for . Patient was admitted under our services with consultation to neurology. CT head and cervical spine completed negative for acute intercranial process and showing no evidence of cervical spine fracture. Patient was evaluated by neurologist, neurology recommending MRI of brain with and without contrast. Physical exam: Patient seen and fully evaluated at bedside. Patient reports having some improvement of her headache but states only minimal improvement of persistent generalized body pain and numbness worse on right side and most severe in right lower extremity. She is awaiting to go down for completion of MRI. Vital signs reviewed and stable. General: Nontoxic, no distress and appears stated age. Derm: Skin warm and dry, normal coloration for ethnicity. Head: Atraumatic, normocephalic and symmetric. Eyes: EOMs intact, no lid lag, and anicteric sclera Mouth: no lip lesions, mucus membranes moist Cardiovascular: regular rate and rhythm with normal S1S2, no murmur, positive posterior tibial pulses bilaterally, and cap refill < 2 seconds. Lungs: Respirations even, regular, and unlabored on room air. Lungs CTA bi laterally, no rhonchi, no rales, no wheezing, and no accessory muscle usage. Abdominal: soft, nontender to palpation, no guarding, no appreciable organomegaly Ext:. No gross muscle atrophy, no edema, no contractures. Movement, sensation, and strength equal to bilateral upper extremities and appears normal left lower extremity. Patient reports minimal sensation to right lower extremity and inabi lity to move. Neuro: Speech clear, face symmetrical and CN II-XII grossly intact with no noted focal neuro deficits Psych: Alert and oriented to person, place, time, and situation. Appropriate and pleasant affect. Assessment and Plan of Care: Generalized pain/myalgias accompanied by numbness and weakness worse on right side, rule out MS exacerbation Intractable headache, improved Anxiety with depression -Patient to continue Solu-Medrol 500 mg IVPB every 12 hours pending further recommendation from neurologist. -Neurology following, recommending MRI brain with and without contrast. -Continue Neuro checks every 4 hours -Continue Fall precautions -Consult physical and occupational therapy. -CT head and cervical spine completed negative for acute intercranial process and showing no evidence of cervical spine fracture. Hypomagnesemia, resolved. Data reviewed: Vital signs reviewed. Blood pressure 130/94, heart rate 99, respiratory rate 18, temp 97.8F, SpO2 of 97% on room air. Labs completed and reviewed. CBC showing leukocytosis with WBC count of 15.45. BMP showing slightly low bicarb of 19.1 and elevated anion gap of 12.90. Ma gnesium remains normal findings at 1.9. CODE STATUS: Full code DVT prophylaxis: Lovenox Anticipated discharge date: Clinical course to determine Anticipated discharge place: Home Patient was seen independently by Nurse Pracitioner. This document was prepared using [employer] dictation software. Please allow for errors in neuro ophthalmologist, while rare they do occur. Rolf Yao NP rendered care for this patient independently, reviewed the findings and plan as documented in the note above. I did not physically speak with or examine the patient on this date. Objective - Vital Signs Vital signs: Vital Signs Temp 97.8 F 03/29/23 07:22 Pulse 99 03/29/23 07:22 Resp 18 03/29/23 07:22 BP 130/94 03/29/23 07:22 Pulse Ox 97 03/29/23 07:22 FiO2 Intake & Output 03/28/23 03/29/23 03/29/23 18:59 06:59 18:59 Output Total 150 Balance -150 Output: Urine 150 Other: Voiding Method Diaper Diaper External Catheter # Voids 1 # Bowel Movements 1 - Labs CBC & Chem 7: 03/29/23 06:21 03/29/23 06:21 Labs: Abnormal Lab Results - Last 24 Hours (Table) 03/28/23 03/28/23 Range/Units 04:32 04:32 Vitamin B12 <150.0 L (200.0-944.0) pg/mL Folate <2.00 L (4.40-31.00) ng/mL
[2023-03-29] MEDS: CYANOCOBALAMIN 1,000 MCG/ML 1 ML VIAL IM SCH (15:27)
[2023-03-29] MEDS ORDERED: LORazepam 2 MG/ML INJ IV PRN (17:46)
--- NOTE | 2023-03-29 20:32 | MR ---
EXAMINATION TYPE: MR brain wo/w con DATE OF EXAM: 03/29/2023 8:04 PM CLINICAL INDICATION:Female, 37 years old with history of multiple sclerosis. Worsening right weakness ; PHH, MS, worsening right weakness. COMPARISON: 03/28/2023 TECHNIQUE: Multi planar, multi sequence imaging was performed through the brain including: T1, T2, In version recovery, susceptibility weighted imaging and gradient echo imaging and Diffusion weighted im aging. The patient was then given intravenous contrast and multi planar, T1 fat-saturation images wer e obtained. IV Contrast: 10.5 cc Gadavist FINDINGS: Scattered areas of T2 shine through on diffusion weighted imaging. No evidence of restricte d diffusion. There is areas of abnormal postcontrast enhancement in the left series 701 image 60, the larger posteriorly measuring up to 3 mm in more anterior punctate focus measuring up to 1 mm. These are located in the left centrum semiovale. White matter changes which are orthogonal to the ventricle s. There is medial right cerebellar hemisphere white matter changes also present. The floyd-white junc tions, ventricular system, basal cisterns appear unremarkable. Intracranial arterial flow voids are maintained. Midline structures show no abnormality. The susceptibility weighted images do not reveal any evidence for micro-hemorrhage. The bone marrow signal is within normal limits. Paranasal sinuses and mastoid air cells: No significant paranasal sinus disease. Visualized orbits: Orbital contents are intact. IMPRESSION: 1. There are 2 areas of left centrum semiovale white matter enhancement suggestive of active demyeli nation. Both are located on Series 701 image 60. 2. No evidence for acute/subacute CVA. 3. No evidence for mass.
[2023-03-30] MEDS: ENOXAPARIN 40 MG/0.4 ML SYRINGE SQ SCH (08:35)
[2023-03-30] MEDS: FOLIC ACID 1 MG TAB PO SCH (08:35)
[2023-03-30] MEDS: DULoxetine HCL 60 MG CAPSULE.DR PO SCH (08:35)
[2023-03-30] MEDS: methylPREDNISolone SOD SUCCIN 500 MG in SODIUM CHLORIDE 0.9% 100 ML IVPB SCH ×2 (08:36→20:26)
[2023-03-30] MEDS: CYANOCOBALAMIN 1,000 MCG/ML 1 ML VIAL IM SCH (09:19)
[2023-03-30 11:45] LABS: HGB 13.6 gm/dL (11.4-16.0); MCH 30.5 pg (25.0-35.0); MCHC 32.5 g/dL (31.0-37.0); MCV 93.9 fL (80.0-100.0); Mean Platelet Volume 7.4; Platelet Count 286 k/uL (150-450); RBC 4.47 m/uL (3.80-5.40); RDW 15.1 % (11.5-15.5); WBC 12.8 k/uL (3.8-10.6)
[2023-03-30 11:56] LABS: ALT 19 U/L (4-34); AST 23 U/L (14-36); African American GFR (CKD) 38 (>60 ml/min/1.73 sqM); Albumin 2.9 g/dL (3.5-5.0); Albumin/Globulin Ratio 1.3; Alkaline Phosphatase 68 U/L (38-126); Anion Gap 5 mmol/L; Blood Urea Nitrogen 35 mg/dL (7-17); Calcium 8.4 mg/dL (8.4-10.2); Carbon Dioxide 26 mmol/L (22-30); Chloride 110 mmol/L (98-107); Globulin 2.3 g/dL; Glucose 141 mg/dL (74-99); Magnesium 2.2 mg/dL (1.6-2.3); Non-African American GFR(CKD) 33 (>60 ml/min/1.73 sqM); Potassium 5.1 mmol/L (3.5-5.1); Sodium 141 mmol/L (137-145); Total Bilirubin 0.3 mg/dL (0.2-1.3); Total Protein 5.2 g/dL (6.3-8.2)
[2023-03-30] MEDS ORDERED: MORPHINE SULFATE 4 MG/ML SYRINGE IV PRN (14:25)
--- NOTE | 2023-03-30 14:37 | P.PN ---
Subjective Progress Note Date: 03/30/23 Hospital course: Patient is a very pleasant 37-year-old female with a past medical history of multiple sclerosis with chronic right-sided weakness and foot drop not on any medications, anxiety, and depression. She presented to the emergency department with complaints of worsening generalized weakness in particular to her right upper and lower extremities accompanied by numbness and myalgias. Patient reported the symptoms are similar to her previous MS exacerbation/flares. She underwent full evaluation in the emergency department. Labs completed and revi ewed. CBC showing elevated hemoglobin of 16.1 otherwise no significant abnormalities. BMP showing hyperchloremia with chloride of 108 and hypocarbia with bicarb of 16. Liver profile showing elevated AST of 37. Magnesium was low at 1.3. Troponin negative at less than 0.012. TSH normal findings is 0.691. Urinalysis positive for trace ketones, blood, and 22 rbc's negative for infection with only 7 WBCs. Urine drug screen positive for marijuana otherwise negative. Serum alcohol level was negative at less than 10. Chest x-ray was negative for acute cardiopulmonary process. Serum hCG negative for . Patient was admitted under our services with consultation to neurology. CT head and cervical spine completed negative for acute intercranial process and showing no evidence of cervical spine fracture. Patient was evaluated by neurologist, neurology recommending MRI of brain with and without contrast. Patient continued on high-dose steroids with Solu-Medrol 500 mg twice daily. MRI brain showing 2 areas of left centrum semiovale white matter enhancement suggestive of active demyelination otherwise negative for acute/subacute CVA or brain mass. Physical exam: Patient seen and fully evaluated at bedside. Patient was sitting up in bed eating breakfast and reports she is feeling much better today with her movement and strength. Patient reports she continues to have slight decreased sensation on right with weakness but has significantly improved since arrival to our facility. Discussed with patient MRI results and recommendations from neurologist. Patient agreeable to tentative plan for 5 days of IV steroids with Solu-Medrol 500 mg twice daily followed by plans for discharge home on steroid taper. Vital signs reviewed and stable. General: Nontoxic, no distress and appears stated age. Derm: Skin warm and dry, normal coloration for ethnicity. Head: Atraumatic, normocephalic and symmetric. Eyes: EOMs intact, no lid lag, and anicteric sclera Mouth: no lip lesions, mucus membranes moist Cardiovascular: regular rate and rhythm with normal S1S2, no murmur, positive posterior tibial pulses bilaterally, and cap refill < 2 seconds. Lungs: Respirations even, regular, and unlabored on room air. Lungs CTA bilate rally, no rhonchi, no rales, no wheezing, and no accessory muscle usage. Abdominal: soft, nontender to palpation, no guarding, no appreciable organomegaly Ext:. No gross muscle atrophy, no edema, no contractures. Movement and sensation intact. Patient with mild right lower extremity weakness. Neuro: Speech clear, face symmetrical and CN II-XII grossly intact with no noted focal neuro deficits Psych: Alert and oriented to person, place, time, and situation. Appropriate and pleasant affect. Assessment and Plan of Care: Acute MS exacerbation with Generalized pain/myalgias accompanied by numbness and weakness worse on right side Intractable headache, improved Anxiety with depression -Patient to continue Solu-Medrol 500 mg IVPB every 12 hours (day 3/5 of IV Solu-Medrol) -Neurology following, discussed plan of care with neurologist Dr. Valentin recommending patient will require 5 day course of IV steroids with Solu-Medrol 500 mg twice a day followed by discharge home on steroid taper. -Maintain fall precautions and Continue Neuro checks every 4 hours -Physical and occupational therapy following. -CT head and cervical spine completed negative for acute intercranial process and showing no evidence of cervical spine fracture. -MRI brain showing 2 areas of left centrum semiovale white matter enhancement suggestive of active demyelination otherwise negative for acute/subacute CVA or brain mass. Acute kidney injury, likely contrast induced acute kidney injury -Patient with acute kidney injury with BUN of 35, creatinine 1.90, and GFR of 33 with previous renal function showing BUN of 15.9 creatinine 0.7, and GFR greater than 90. Acute kidney injury believed to be result of contrast-induced renal injury from MRI as patient denies having any renal complaints. -We will avoid any further nephrotoxic medications as patient did previously receive Toradol for pain management, this was discontinued and order for morphine 4 mg IVP every 4 hours was placed for pain management. -Order placed for IV fluid hydration with 0.9% normal saline at 125 mL per hour and we will repeat BMP with a.m. labs to monitor closely for improvement of r enal function. -Order also placed for repeat urinalysis and bladder scan to monitor for postvoid residuals. If no improvement or further worsening of renal function patient will require ultrasound renal/bladder/ureter and possible consultation to nephrology for evaluation. Hypomagnesemia, resolved. Data and imaging reviewed: Vital signs reviewed. Blood pressure 134/83, heart rate 53, respiratory rate 17, temp 98.4F, and SpO2 of 98% on room air. Labs completed and reviewed. CBC showing leukocytosis with WBC count of 12.8 otherwise normal findings. BMP showing slight elevation of chloride at 110 and acute kidney injury with BUN of 35, creatinine 1.90, and GFR of 33. MRI brain showing 2 areas of left centrum semiovale white matter enhancement suggestive of active demyelination otherwise negative for acute/subacute CVA or brain mass. CODE STATUS: Full code DVT prophylaxis: Lovenox Anticipated discharge date: Clinical course to determine, possibly 04/01/23 after completion of 5 day course of IV steroids Anticipated discharge place: Home Patient was seen independently by Nurse Pracitioner. This document was prepared using [employer] dictation software. Please allow for errors in high raw sugar boiler, while rare they do occur. Objective - Vital Signs Vital signs: Vital Signs Temp 98.4 F 03/30/23 07:57 Pulse 53 L 03/30/23 07:57 Resp 17 03/30/23 07:57 BP 134/83 03/30/23 07:57 Pulse Ox 98 03/30/23 07:57 FiO2 Intake & Output 03/29/23 03/30/23 03/30/23 18:59 06:59 18:59 Other: Voiding Method Bedside Commode Bedside Commode Diaper Diaper External Catheter # Voids 1 1 - Labs CBC & Chem 7: 03/30/23 11:29 03/30/23 11:29 Labs: Abnormal Lab Results - Last 24 Hours (Table) 03/29/23 03/29/23 Range/Units 06:21 06:21 WBC 15.45 H (4.50-10.00) X 10*3/uL RDW 15.9 H (11.5-14.5) % Carbon Dioxide 19.1 L (21.6-31.8) mmol/L Anion Gap 12.90 H (4.00-12.00) mmol/L BUN/Creatinine Ratio 22.71 H (12.00-20.00) Ratio Glucose 142 H (70-110) mg/dL Total Bilirubin <0.2 L (0.3-1.2) mg/dL Total Protein 6.0 L (6.2-8.2) g/dL Albumin 3.6 L (3.8-4.9) g/dL Albumin/Globulin Ratio 1.50 L (1.60-3.17) Ratio
[2023-03-30] MEDS: SODIUM CHLORIDE 0.9% 1,000 ML IV SCH ×2 (14:39→19:45)
--- NOTE | 2023-03-30 15:10 | P.PN ---
Subjective Progress Note Date: 03/30/23 03/30/2023: Patient was seen for a follow-up. Patient states that she is feeling slightly better. Patient tells me that she was diagnosed with MS on 10/31/2004, although her symptoms were present way before that. Over years she has tried numerous medications for MS. At first she was placed on Copaxone in 2004. Then over years she has tried Tysabri, Avonex, Betaseron, Rituxan produced anaphylactic reaction. Also tried Aubagio and Gilenya. The last one she tried was Mavenclad. 03/29/2023: Patient initially seen by Dr. Jorden Pierson. Please refer to his note for details. Patient is a 37-year-old female with history of multiple sclerosis, currently not on any disease modifying agents, has MS since 2019. She has previously tried Mavenclad. She has a lot of psych issues, who presents with subjective generalized and worsening right-sided weakness. Dr. Pierson felt it was functional. Patient is on prednisone. Awaiting MRI of the brain. Patient states that today is the first that she was able to get out of bed, make 3-4 steps to the commode. Patient is on steroids. She continues to have weakness of the right side of the body, with numbness. Patient says that all her medical records are in [facility], but she has moved to [place]. She is here for visiting some friends. She is planning to go back to [place] from [place]. Objective - Vital Signs Vital signs: Vital Signs Temp 98.4 F 03/30/23 13:22 Pulse 49 L 03/30/23 13:22 Resp 17 03/30/23 13:22 BP 157/90 03/30/23 13:22 Pulse Ox 97 03/30/23 13:22 FiO2 Intake & Output 03/29/23 03/30/23 03/30/23 18:59 06:59 18:59 Other: Voiding Method Bedside Commode Bedside Commode Bedside Commode Diaper Diaper External Catheter # Voids 1 1 - Labs CBC & Chem 7: 03/31/23 06:21 03/30/23 11:29 Labs: Abnormal Lab Results - Last 24 Hours (Table) 03/30/23 03/30/23 Range/Units 11: 11:29 WBC 12.8 H (3.8-10.6) k/uL Chloride 110 H (98-107) mmol/L BUN 35 H (7-17) mg/dL Creatinine 1.90 H (0.52-1.04) mg/dL Glucose 141 H (74-99) mg/dL Total Protein 5.2 L (6.3-8.2) g/dL Albumin 2.9 L (3.5-5.0) g/dL Assessment and Plan Assessment: This is a 37 y/o woman with history of reported MS about 19 years ago in [place] who was on Mavenclad in 2019 then was told she did not require to be on disease modifying therapy with residual right hemiparesis, depression and anxiety who presents because of generalized weakness and mostly worsening right sided weakness. Also states not getting her psychiatric medication for the past 2 months. Generalized weakness and reported weakness of right side: Probable exacerbation of MS. History of MS diagnosed about 2019 and not on any medication since 2019 since bein on Mavenclad Depression and Anxiety and stated has not received refills for past two months. Severe vitamin B12 deficiency Folate deficiency Marijuana use Plan: MRI of the brain with and without contrast revealed 2 areas of left centrum semiovale white matter enhancement suggestive of active demyelination. Both are located on series 701, image 60. I personally reviewed MRI, and was able to see at least one of them. There is significant small vessel disease, periventricular, consistent with her diabetes of MS. No evidence for acute/mcallister bacute CVA. No mass. In the ED she received 900 mg of hydrocortisone once. There in the ER was started on IV Solu-Medrol [address] Pierson changed that to 500 mg twice a day and to be the total dose of 5 days. Vitamin B12 < 150, folate < 2.0, hemoglobin A1c 5.9 and Vitamin D level pending. Patient will be started on vitamin B12 1000 g IM for 3 days and then orally daily and folate 1 mg orally daily. Physical therapy and occupational therapy I recommend the patient to follow-up with her neurologist and psychiatrist as an outpatient. Will defer the GI prophylaxis and the glucose monitoring to the primary team because of IV steroids. Neurology will follow.
[2023-03-30 18:42] LABS: Appearance,Urine Clear (Clear); Bilirubin,Urine Negative (Negative); Blood,Urine Negative (Negative); Color,Urine Light Yellow; Glucose,Urine (UA) Trace (Negative); Ketones,Urine Negative (Negative); Leukocyte Esterase,Urine Large (Negative); Mucus,Urine Rare /hpf; Nitrite,Urine Negative (Negative); Protein,Urine Negative (Negative); RBC,Urine 6 /hpf (0-5); Specific Gravity,Urine 1.017 (1.001-1.035); Squamous Epithelial Cell,Urine 2 /hpf (0-4); WBC,Urine 14 /hpf (0-5)
[2023-03-31] MEDS: SODIUM CHLORIDE 0.9% 1,000 ML IV SCH ×2 (06:20→14:24)
[2023-03-31] MEDS: methylPREDNISolone SOD SUCCIN 500 MG in SODIUM CHLORIDE 0.9% 100 ML IVPB SCH ×2 (09:14→20:25)
[2023-03-31] MEDS: FOLIC ACID 1 MG TAB PO SCH (09:14)
[2023-03-31] MEDS: DULoxetine HCL 60 MG CAPSULE.DR PO SCH (09:14)
[2023-03-31] MEDS: PANTOPRAZOLE 40 MG TABLET PO SCH (09:14)
[2023-03-31] MEDS: ENOXAPARIN 40 MG/0.4 ML SYRINGE SQ SCH (09:14)
[2023-03-31] MEDS: CYANOCOBALAMIN 1,000 MCG/ML 1 ML VIAL IM SCH (09:15)
--- NOTE | 2023-03-31 11:15 | P.CRDCN ---
History of Present Illness Consult date: 03/31/23 Reason for Consult (text): Bradycardia History of present illness: History of present illness: This is a 37-year-old female with no previous cardiac history and is to follow with [employer]. 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 We have been asked to evaluate the patient for bradycardia. Patient has been brought into the hospital on 03/27 due to weakness and numbness to both upper and lower extremities. Patient has been on high-dose Solu-Medrol for MS exacerbation. Patient was noted to have bradycardia running as low as 43 while she was resting. We have asked the patient to ambulate this morning, resting heart rate was 56 and heart rate went to 91 with casual walking. EKG sinus bradycardia with no ST-T wave changes. Chest x-ray: No acute process WBC 12.8, hemoglobin 13.6, BUN 35 creatinine 1.9, blood sugar 149. Troponin negative 3. TSH 0.691. Drug screen positive for marijuana. Home cardiac medications: None Review Of Systems: At the time of my evaluation: Constitutional: No fever, no chills. No weakness, fatigue or lethargy. EENT: No headache. No dizziness. Lungs: No shortness of breath, cough, no sputum production. No wheezing. Cardiovascular: No chest pain, no lower extremity edema. No palpitations. No paroxysmal nocturnal dyspnea. No orthopnea. No lightheadedness or dizziness. No syncopal episodes. Abdominal: No abdominal pain. No nausea, vomiting. No diarrhea. No constipation. No bloody or tarry stools. Genitourinary: No dysuria.. No urinary retention. Musculoskeletal: No myalgias. No muscle weakness, no frequent falls. No back pain. No neck pain. Integumentary: No wounds. No rash. No unusual bruising. Neurologic: No aphasia. No facial droop. No change in mentation. No head injury. No headache. Physical examination: Gen: This is a 37-year-old female. She is resting in bed and appears to be in no acute distress. VS: reviewed HEENT: Head is atraumatic, normocephalic. Pupils equal, round. Sclerae is anicteric. NECK: Supple. No JVD. LUNGS: Clear to auscultation. No wheezes or rhonchi. No intercostal retractions. HEART: Regular rate and rhythm. No murmur. ABDOMEN: Soft No tenderness. EXTREMITIES: No pedal edema. No calf tenderness. NEUROLOGICAL: Patient is awake, alert and oriented x3. Assessment: Asymptomatic bradycardia with normal chronotropic response to casual walking Acute kidney injury MS exacerbation Hypertension possibly due to steroids Plan: Patient had a normal: Traumatic response to walking and is asymptomatic with bradycardia. Recommend outpatient sleep study for suspected obstructive sleep apnea Obtain 2-D echocardiogram and Doppler study to assess cardiac structure and function Further recommendations to follow based upon clinical course Thank you kindly for this consultation. Nurse practitioner note has been reviewed, I agree with documented findings and plan of care. Patient was seen and examined. Past Medical History Additional Past Medical History / Comment(s): MS History of Any Multi-Drug Resistant Organisms: None Reported Past Surgical History: Section Additional Past Surgical History / Comment(s): hernia Past Psychological History: Anxiety, Depression Smoking Status: Current every day smoker Past Alcohol Use History: Rare Past Drug Use History: Heroin Medications and Allergies Home Medications Medication Instructions Recorded Confirmed Type DULoxetine HCL [Cymbalta] 120 mg PO DAILY 03/27/23 03/27/23 History Allergies Allergy/AdvReac Type Severity Reaction Status Date / Time acetaminophen AdvReac Rapid Verified 03/27/23 20:05 [From Excedrin Extra Heart Rate Strength] aspirin AdvReac Rapid Verified 03/27/23 20:05 [From Excedrin Extra Heart Rate Strength] caffeine AdvReac Rapid Verified 03/27/23 20:05 [From Excedrin Extra Heart Rate Strength] oseltamivir [From Tamiflu] AdvReac Rapid Verified 03/27/23 20:05 Heart Rate Physical Exam Vitals: Vital Signs Temp Pulse Resp BP Pulse Ox 03/31/23 07:34 98.5 F 70 17 161/85 95 03/31/23 01:04 97.4 F L 48 L 18 152/81 96 03/30/23 21:06 96 03/30/23 21:04 43 L 03/30/23 18:52 98.5 F 50 L 18 137/76 98 03/30/23 13:22 98.4 F 49 L 17 157/90 97 Intake and Output 03/30/23 03/31/23 03/31/23 22:59 06:59 14:59 Intake Total 780 Output Total 650 Balance 780 -650 Intake: Oral 780 Output: Urine 650 Other: Voiding Method Bedside Commode Diaper External Catheter # Voids 4 2 Results 03/30/23 11:29 03/30/23 11:29 Cardiac Enzymes 03/30/23 03/30/23 03/30/23 Range/Units 11:29 21:25 22:42 AST 23 (14-36) U/L Troponin I <0.012 <0.012 (0.000-0.034) ng/mL CBC 03/30/23 Range/Units 11:29 WBC 12.8 H (3.8-10.6) k/uL RBC 4.47 (3.80-5.40) m/uL Hgb 13.6 (11.4-16.0) gm/dL Hct 42.0 (34.0-46.0) % Plt Count 286 (150-450) k/uL Comprehensive Metabolic Panel 03/30/23 Range/Units 11:29 Sodium 141 (137-145) mmol/L Potassium 5.1 (3.5-5.1) mmol/L Chloride 110 H (98-107) mmol/L Carbon Dioxide 26 (22-30) mmol/L BUN 35 H (7-17) mg/dL Creatinine 1.90 H (0.52-1.04) mg/dL Glucose 141 H (74-99) mg/dL Calcium 8.4 (8.4-10.2) mg/dL AST 23 (14-36) U/L ALT 19 (4-34) U/L Alkaline Phosphatase 68 (38-126) U/L Total Protein 5.2 L (6.3-8.2) g/dL Albumin 2.9 L (3.5-5.0) g/dL Current Medications Generic Name Dose Route Start Last Admin Trade Name Freq PRN Reason Stop Dose Admin Acetaminophen 650 mg 03/28/23 08:34 03/28/23 08:44 Acetaminophen Tab 325 Mg Tab PO 650 mg Q6HR PRN Administration Mild Pain or Fever > 100.5 Cyanocobalamin 1,000 mcg 03/29/23 12:45 03/31/23 09:15 Cyanocobalamin 1,000 Mcg/Ml 1 Ml Vial IM 04/01/23 12:46 1,000 mcg DAILY ELAINE Administration Duloxetine HCl 120 mg 03/28/23 09:00 03/31/23 09:14 Duloxetine Hcl 60 Mg Capsule.Dr PO 120 mg DAILY ELAINE Administration Enoxaparin Sodium 40 mg 03/28/23 09:00 03/31/23 09:14 Enoxaparin 40 Mg/0.4 Ml Syringe SQ 40 mg DAILY ELAINE Administration Folic Acid 1 mg 03/30/23 09:00 03/31/23 09:14 Folic Acid 1 Mg Tab PO 1 mg DAILY ELAINE Administration Methylprednisolone Sodium 100 mls @ 100 mls/hr 03/28/23 21:00 03/31/23 09:14 Succinate 500 mg/ Sodium IVPB 100 mls/hr Chloride Q12HR ELAINE Administration Sodium Chloride 1,000 mls @ 125 mls/hr 03/30/23 14:30 03/31/23 06:20 Saline 0.9% IV 125 mls/hr .Q8H ELAINE Administration Lorazepam 1 mg 03/29/23 17:46 03/29/23 18:28 Lorazepam 2 Mg/Ml Inj IV 1 mg ONCE PRN Administration Anxiety Morphine Sulfate 4 mg 03/30/23 14:25 Morphine Sulfate 4 Mg/Ml Syringe IV Q4HR PRN Severe Pain (Scale 7 to 10) Naloxone HCl 0.2 mg 03/27/23 20:13 Naloxone 0.4 Mg/Ml 1 Ml Vial IV Q2M PRN Opioid Reversal Pantoprazole Sodium 40 mg 03/31/23 07:45 03/31/23 09:14 Pantoprazole 40 Mg Tablet PO 40 mg [id number] ELAINE Administration Intake and Output 03/30/23 03/31/23 03/31/23 22:59 06:59 14:59 Intake Total 780 Output Total 650 Balance 780 -650 Intake: Oral 780 Output: Urine 650 Other: Voiding Method Bedside Commode Diaper External Catheter # Voids 4 2 03/30/23 11:29 03/30/23 11:29
--- NOTE | 2023-03-31 12:00 | US ---
EXAMINATION TYPE: US renals and bladder DATE OF EXAM: 03/31/2023 COMPARISON: NONE CLINICAL INDICATION: Female, 37 years old with history of shailesh; SHAILESH EXAM MEASUREMENTS: Right Kidney: 11.6x6.6x5.4 cm Left Kidney: 11.6x5.3x6.2 cm Right Kidney: wnl Left Kidney: wnl Bladder: wnl Bilateral Jets seen: Yes There is no evidence for hydronephrosis at this point in time. No nephrolithiasis is seen. No hema s are identified. The urinary bladder is anechoic. Bilateral ureteral jets are seen. Exam slightly limited by bowel and body habitus IMPRESSION: 1. No suspicious acute renal ultrasound abnormalities.
--- NOTE | 2023-03-31 12:56 | CA ---
Transthoracic Echo Report Name: Gia Narayanan Age: 37 Gender: F : 1985 Exam Date: 03/31/2023 10:58 Exam Location: [facility] Ht (in): 69 Wt (lb): 230 Ordering Physician: Rand Parker Attending/Referring Phys: [id number], Elena Bottom Brusher Inga Solo RDCS Procedure CPT: Indications: LVF Cardiac Hx: Technical Quality: Fair Contrast 1: Total Dose (mL): Contrast 2: Total Dose (mL): MEASUREMENTS (Male / Female) Normal Values 2D ECHO LV Diastolic Diameter PLAX 4.0 cm 4.2 - 5.9 / 3.9 - 5.3 cm LV Systolic Diameter PLAX 2.2 cm IVS Diastolic Thickness 1.2 cm 0.6 - 1.0 / 0.6 - 0.9 cm LVPW Diastolic Thickness 1.1 cm 0.6 - 1.0 / 0.6 - 0.9 cm LV Relative Wall Thickness 0.6 RV Internal Dim ED PLAX 3.4 cm LA Volume 71.1 cm??? 18 - 58 / 22 - 52 cm??? LA Volume Index 31.0 cm???/m??? 16 - 28 cm???/m??? M-MODE Aortic Root Diameter MM 2.8 cm LA Systolic Diameter MM 4.4 cm LA Ao Ratio MM 1.6 AV Cusp Separation MM 2.0 cm DOPPLER AV Peak Velocity 147.3 cm/s AV Peak Gradient 8.7 mmHg AV Mean Velocity 97.2 cm/s AV Mean Gradient 4.3 mmHg AV Velocity Time Integral 31.5 cm AI Peak Velocity 341.6 cm/s AI Peak Gradient 46.7 mmHg AI Pressure Half Time 600.6 ms LVOT Peak Velocity 126.0 cm/s LVOT Peak Gradient 6.3 mmHg LVOT Velocity Time Integral 29.4 cm MV Area PHT 3.3 cm??? Mitral E Point Velocity 121.1 cm/s Mitral A Point Velocity 89.4 cm/s Mitral E to A Ratio 1.4 MV Deceleration Time 231.7 ms MV E' Velocity 10.9 cm/s Mitral E to MV E' Ratio 11.2 TR Peak Velocity 263.1 cm/s TR Peak Gradient 27.7 mmHg Right Ventricular Systolic Press 31.9 mmHg FINDINGS Left Ventricle Mildly increased left ventricular wall thickness. Left ventricular cavity size normal. Normal left ventricular systolic function with no obvious regional wall motion abnormalities. Left ventricular ejection fraction is estimated at 55-60 %. Right Ventricle Normal right ventricular size and function. Right ventricular systolic pressure within normal limits. Right Atrium Normal right atrial size. Left Atrium Mildly increased left atrial volume. Mitral Valve Structurally normal mitral valve. No mitral stenosis or prolapse. Trace mitral regurgitation. Aortic Valve Trileaflet aortic valve. No aortic stenosis. Trace to mild aortic regurgitation. Tricuspid Valve Structurally normal tricuspid valve. Mild tricuspid regurgitation. Pulmonic Valve Structurally normal pulmonic valve. Pericardium No pericardial effusion. Aorta Normal size aortic root and proximal ascending aorta. CONCLUSIONS Normal LV size and systolic function. No significant abnormality in the Doppler exam. No pericardial effusion. No pulmonary hypertension Previewed by: Dr. Delano Pinto MD (Electronically Signed) Final Date: 31 March 2023 12:55
[2023-03-31 13:44] LABS: HCT 40.6 % (37.2-46.3); HGB 13.5 g/dL (12.0-15.0); MCH 30.1 pg (27.0-32.0); MCHC 33.3 g/dL (32.0-37.0); MCV 90.6 FL (80.0-97.0); Mean Platelet Volume 9.8 FL (9.5-12.2); NRBC Per 100 WBC 0 X 10*3/uL (0.00-0.01); Platelet Count 285 X 10*3/uL (140-440); RBC 4.48 X 10*6/uL (4.10-5.20); RDW 15.1 % (11.5-14.5); WBC 10.27 X 10*3/uL (4.50-10.00)
--- NOTE | 2023-03-31 14:01 | P.PN ---
Subjective Progress Note Date: 03/31/23 03/31/2023: Patient was seen for a follow-up. Patient feels she is doing much better. Her right side is getting stronger. No new concerns. 03/30/2023: Patient was seen for a follow-up. Patient states that she is feeling slightly better. Patient tells me that she was diagnosed with MS on 10/31/2004, although her symptoms were present way before that. Over years she has tried numerous medications for MS. At first she was placed on Copaxone in 2004. Then over years she has tried Tysabri, Avonex, Betaseron, Rituxan produced anaphylactic reaction. Also tried Aubagio and Gilenya. The last one she tried was Mavenclad. 03/29/2023: Patient initially seen by Dr. Jorden Pierson. Please refer to his note for details. Patient is a 37-year-old female with history of multiple sclerosis, currently not on any disease modifying agents, has MS since 2019. She has previously tried Mavenclad. She has a lot of psych issues, who presents with subjective generalized and worsening right-sided weakness. Dr. Pierson felt it was functional. Patient is on prednisone. Awaiting MRI of the brain. Patient states that today is the first that she was able to get out of bed, make 3-4 steps to the commode. Patient is on steroids. She continues to have we akness of the right side of the body, with numbness. Patient says that all her medical records are in [facility], but she has moved to [place]. She is here for visiting some friends. She is planning to go back to [place] from [place]. Objective - Vital Signs Vital signs: Vital Signs Temp 98.5 F 03/31/23 07:34 Pulse 70 03/31/23 07:34 Resp 17 03/31/23 07:34 BP 161/85 03/31/23 07:34 Pulse Ox 95 03/31/23 07:34 FiO2 Intake & Output 03/30/23 03/31/23 03/31/23 18:59 06:59 18:59 Intake Total 580 200 Output Total 650 Balance 580 -450 Intake: Oral 580 200 Output: Urine 650 Other: Voiding Method Bedside Commode Bedside Commode Bedside Commode Diaper Diaper External Catheter External Catheter # Voids 4 2 - Exam Patient's mental status, speech and language functions are normal. Her speech i s slightly slurred because of tongue pierced. Cranial nerves are normal. Visual vizcarra are full. No neglect. Face is symmetric. Sensory slightly decreased in the right side of the face as compared to the left. On muscle strength testing, patient has right pronation, with mild right elbow flexion. 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 Sensory to touch is decreased in the right arm and leg as compared to the left. Cerebellar function showed mild ataxia for [id number] testing on the right. Cannot perform with the leg. - Labs CBC & Chem 7: 03/31/23 06:21 03/30/23 11:29 Labs: Abnormal Lab Results - Last 24 Hours (Table) 03/28/23 03/30/23 03/31/23 Range/Units 04:32 18:23 06:21 WBC 10.27 H (4.50-10.00) X 10*3/uL RDW 15.1 H (11.5-14.5) % Vit D 1,25-Dihydroxy 85 H (20 - 79) pg/mL Urine Glucose (UA) Trace H (Negative) Ur Leukocyte Esterase Large H (Negative) Urine RBC 6 H (0-5) /hpf Urine WBC 14 H (0-5) /hpf Urine Mucus Rare H (None) /hpf Assessment and Plan Assessment: This is a 37 y/o woman with history of reported MS about 19 years ago in [place] who was on Mavenclad in 2019 then was told she did not require to be on disease modifying therapy with residual right hemiparesis, depression and anxiety who presents because of generalized weakness and mostly worsening right sided weakness. Also states not getting her psychiatric medication for the past 2 months. Generalized weakness and reported weakness of right side: Probable exacerbation of MS. History of MS diagnosed about 2019 and not on any medication since 2019 since bein on Mavenclad Depression and Anxiety. Severe vitamin B12 deficiency Folate deficiency Marijuana use Plan: MRI of the brain with and without contrast revealed 2 areas of left centrum semiovale white matter enhancement suggestive of active demyelination. Both are located on series 701, image 60. I personally reviewed MRI, and was able to see at least one of them. There is significant small vessel disease, chad ventricular, consistent with her diabetes of MS. No evidence for acute/subacute CVA. No mass. Recommend Solu-Medrol 500 mg twice a day for 5 days. After she has received an doses of Solu-Medrol, then she will be clear for discharge on prednisone 60 mg daily for 5 days, then 50 mg for 1 day, 40 mg for one day, 30 mg for 1 day, 20 mg for one day, 10 mg for 1 day and then stop. Vitamin B12 < 150, folate < 2.0, hemoglobin A1c 5.9 and Vitamin D level 85. Patient will be started on vitamin B12 1000 g IM for 3 days and then orally daily and folate 1 mg orally daily. Physical therapy and occupational therapy I recommend the patient to follow-up with her neurologist and psychiatrist as an outpatient. Will defer the GI prophylaxis and the glucose monitoring to the primary team because of IV steroids. Neurologically clear, once she completes 5 days of IV Solu-Medrol.
[2023-03-31 14:14] LABS: ALT 65 U/L (8-44); AST 31 U/L (13-35); Albumin 3.7 g/dL (3.8-4.9); Albumin/Globulin Ratio 1.61 Ratio (1.60-3.17); Alkaline Phosphatase 58 U/L (41-126); Blood Urea Nitrogen 10.8 mg/dL (9.0-27.0); Calcium 9.1 mg/dL (8.7-10.3); Chloride 105 mmol/L (96-109); Globulin 2.3 g/dL (1.6-3.3); Glucose 165 mg/dL (70-110); Potassium 3.5 mmol/L (3.5-5.5); Sodium 142 mmol/L (135-145); Total Bilirubin 0.2 mg/dL (0.3-1.2)
--- NOTE | 2023-03-31 14:45 | P.SLEEP ---
History of Present Illness H&P Date: 03/31/23 This is a consultation a 37-year-old female patient used to live in [place] and currently trying to move to [facility]. I was asked to evaluate this patient for possibility of obstructive sleep apnea. The patient is morbidly obese. She carries a body mass index of 34. Nevertheless, she states that she has lost considerable amount of weight in the order of 60 pounds by doing some dietary changes patient is known to have multiple sclerosis and currently she is admitted for MS exacerbation the patient is currently receiving IV Solu-Medrol 100 mg IV every 12 hours. She was noted to have some bradycardia. The bradycardia is not limited to evening or sleep-related. Her heart rate cur rently is improved. Patient is also seen by cardiology. She has a regular sleep schedule. She tries to go to bed after midnight and she sleeps about 7-8 hours. She does not take any naps during the day. She is alert and awake during the day and she doesn't fall asleep during day-to-day activities. She does not fall asleep while driving. Denies waking up choking or gasping for air. No sleep walking. No sleep talking. No sleep paralysis. No hallucinations. No cataplexy. She has chronic numbness and restlessness and lower extremities related to her multiple sclerosis. She also wakes up frequently in the middle of the night to urinate as the patient has an irritable bladder probably related to her multiple sclerosis. No history of alcoholism. No cardiac disease. No history of any pulmonary disease or disorder. Review of Systems Constitutional: Reports weight loss (60 pounds over the past 6 months) Eyes: denies as per HPI, denies blurred vision, denies bulging eye, denies decreased vision, denies diplopia, denies discharge, denies dry eye, denies irritation, denies itching, denies pain, denies photophobia, denies loss of peripheral vision, denies loss of vision, denies tunnel vision/blind spots Ears: deny: decreased hearing, ear discharge, earache, tinnitus Ears, nose, mouth and throat: Reports as per HPI Breasts: absent: as per HPI, change in shape, gynecomastia, masses, nipple discharge, pain, skin changes, swelling Cardiovascular: Reports as per HPI Respiratory: Reports snoring Gastrointestinal: Reports as per HPI Genitourinary: Reports as per HPI Menstruation: Reports as per HPI Musculoskeletal: Reports as per HPI Musculoskeletal: absent: ankle pain, ankle stiffness, ankle swelling Neurological: Reports as per HPI Psychiatric: Reports as per HPI Endocrine: Reports as per HPI Hematologic/Lymphatic: Reports as per HPI Allergic/Immunologic: Reports as per HPI Past Medical History Additional Past Medical History / Comment(s): MS History of Any Multi-Drug Resistant Organisms: None Reported Past Surgical History: Section Additional Past Surgical History / Comment(s): hernia Past Psychological History: Anxiety, Depression Smoking Status: Current every day smoker Past Alcohol Use History: Rare Past Drug Use History: Heroin Medications and Allergies Home Medications Medication Instructions Recorded Confirmed Type DULoxetine HCL [Cymbalta] 120 mg PO DAILY 03/27/23 03/27/23 History Allergies Allergy/AdvReac Type Severity Reaction Status Date / Time acetaminophen AdvReac Rapid Verified 03/27/23 20:05 [From Excedrin Extra Heart Rate Strength] aspirin AdvReac Rapid Verified 03/27/23 20:05 [From Excedrin Extra Heart Rate Strength] caffeine AdvReac Rapid Verified 03/27/23 20:05 [From Excedrin Extra Heart Rate Strength] oseltamivir [From Tamiflu] AdvReac Rapid Verified 03/27/23 20:05 Heart Rate Physical Exam Vitals: Vital Signs Temp Pulse Resp BP Pulse Ox 03/31/23 07:34 98.5 F 70 17 161/85 95 03/31/23 01:04 97.4 F L 48 L 18 152/81 96 03/30/23 21:06 96 03/30/23 21:04 43 L 03/30/23 18:52 98.5 F 50 L 18 137/76 98 03/30/23 13:22 98.4 F 49 L 17 157/90 97 Intake and Output 03/30/23 03/31/23 03/31/23 22:59 06:59 14:59 Intake Total 780 Output Total 650 Balance 780 -650 Intake: Oral 780 Output: Urine 650 Other: Voiding Method Bedside Commode Diaper External Catheter # Voids 4 2 Gen: This is a 37-year-old female. She is resting in bed and appears to be in no acute distress. VS: reviewed HEENT: Head is atraumatic, normocephalic. Pupils equal, round. Sclerae is anicteric. The patient has a Mallampati class I and there is no significant crowding of the posterior oropharynx. NECK: Supple. No JVD. LUNGS: Clear to auscultation. No wheezes or rhonchi. No intercostal retractions. HEART: Regular rate and rhythm. No murmur. ABDOMEN: Soft No tenderness. EXExamination of the extremities revealed easily palpable radial, femoral and pedal pulses. There was no cyanosis, clubbing or edema. NEUROLOGICAL: Patient is awake, alert and oriented x3. Please refer to neurology evaluation regarding her previous history of MS Examination of the skin revealed no evidence of significant rashes, suspicious appearing nevi or other concerning lesions. Assessment and Plan Plan: Snoring, no clear indication for underlying sleep breathing disorder based on the reported symptoms. Multiple sclerosis with exacerbation, currently on IV Solu-Medrol Asymptomatic bradycardia, currently under the care of cardiology. Adequate chronotropic response Hypertension related to systemic steroids Plan Encourage further weight loss. Regular sleep schedule and sleep hygiene Completed treatment for multiple sclerosis We'll do an outpatient polysomnography at the later stage once the patient is fully recovered to evaluate her sleep quality, architecture and look for any underlying significant sleep breathing disorder and rule out any nocturnal cardiac arrhythmias. We'll continue to follow Sleep Note - Sleep Note Sleep Note: Temperature: 98.5 F Pulse Rate: 98 Respiratory Rate: 17 Blood Pressure: 112/82 SpO2: 95 Height: 5 ft 9 in Weight: 104.326 kg BMI: Neck Circumference:
--- NOTE | 2023-03-31 14:49 | P.PN ---
Subjective Progress Note Date: 03/31/23 Patient is a 37-year-old female with known multiple sclerosis resulting with chronic right-sided weakness and footdrop, anxiety, and depression who presented to the emergency department due to generalized weakness, numbness, and myalgias. In the emergency department she underwent an extensive evaluation. Laboratory analysis was remarkable for hemoglobin of 16.1, chloride 108, bicarb 16, magnesium 1.3, and urine drug screen positive for marijuana. Chest x-ray showed no acute process. She was admitted for possible MS flare. Neurology was consulted. The patient was started on IV Solu-Medrol. She underwent a CT head and cervical spine showed no acute intracranial process and no evidence of cervical spine fracture with mild multilevel degenerative disc disease. She was seen by neurology was continued on high-dose Solu-Medrol. She underwent MRI of the brain which showed 2 areas of active demyelination with no evidence of acute or subacute CVA. She was continued on IV solumedrol. Patient seen and examined at bedside. She states that her right side is getting better. She is feeling well. She is asking to go home. She feels as though she would do okay on oral steroids. We discussed the importance of her following up with neurology on discharge and that she can go home once Dr. Merrill has cleared her. Vital signs reviewed General: nontoxic, no distress, appears at stated age Cardiovascular: S1S2 reg, no murmur, positive posterior tibial pulse bilateral, Lungs: CTA bilateral, no rhonchi, no rales , no accessory muscle use Abdominal: soft, nontender to palpation, no guarding, no appreciable organomegaly Ext: no gross muscle atrophy, no edema b/l lower extremities, no contractures Neuro: CN II-XI grossly intact, no focal neuro deficits Psych: Alert, oriented, appropriate affect Assessment/Plan: Acute exacerbation of MS with right-sided weakness Intractable headache -Neurology note reviewed: Continue with Solu-Medrol 500 mg twice daily, follow up with neurologist and psychiatrist as outpatient -Methylprednisolone 500 mg IV piggyback every 12 hours day #4 Asymptomatic bradycardia - cardio consult reviewed, echo normal, recommend KEVIN eval Vitamin B12 deficiency Folate deficiency -Vitamin B12 1000 g IM daily, day #3 -4 acid 1 mg by mouth daily SHAILESH, undetermined etiology - check post vopid residual with concerns for possible retention with MS - Conitnue with 0.9% NS at 100 cc/hr - check renal and bladder US Hypomagnesemia, resolved Chronic: Anxiety and depression Imaging: None new Echocardiogram-ejection fraction 55-60% Data Review: CBC and BMP pending at the time of my evaluation DVT prophylaxis: Lovenox Anticipated discharge date: in 24-[address]: Home This dictation was prepared using [employer] voice recognition software. Though every attempt is made to correct errors during dictation some may still exist. Objective - Vital Signs Vital signs: Vital Signs Temp 98.5 F 03/31/23 07:34 Pulse 70 03/31/23 07:34 Resp 17 03/31/23 07:34 BP 161/85 03/31/23 07:34 Pulse Ox 95 03/31/23 07:34 FiO2 Intake & Output 03/30/23 03/31/23 03/31/23 18:59 06:59 18:59 Intake Total 580 200 Output Total 650 Balance 580 -450 Intake: Oral 580 200 Output: Urine 650 Other: Voiding Method Bedside Commode Bedside Commode Diaper External Catheter # Voids 4 2 - Labs CBC & Chem 7: 03/31/23 06:21 03/31/23 06:21 Labs: Abnormal Lab Results - Last 24 Hours (Table) 03/28/23 03/30/23 03/30/23 Range/Units 04:32 11:29 11:29 WBC 12.8 H (3.8-10.6) k/uL Chloride 110 H (98-107) mmol/L BUN 35 H (7-17) mg/dL Creatinine 1.90 H (0.52-1.04) mg/dL Glucose 141 H (74-99) mg/dL Total Protein 5.2 L (6.3-8.2) g/dL Albumin 2.9 L (3.5-5.0) g/dL Vit D 1,25-Dihydroxy 85 H (20 - 79) pg/mL Urine Glucose (UA) (Negative) Ur Leukocyte Esterase (Negative) Urine RBC (0-5) /hpf Urine WBC (0-5) /hpf Urine Mucus (None) /hpf 03/30/23 Range/Units 18:23 WBC (3.8-10.6) k/uL Chloride (98-107) mmol/L BUN (7-17) mg/dL Creatinine (0.52-1.04) mg/dL Glucose (74-99) mg/dL Total Protein (6.3-8.2) g/dL Albumin (3.5-5.0) g/dL Vit D 1,25-Dihydroxy (20 - 79) pg/mL Urine Glucose (UA) Trace H (Negative) Ur Leukocyte Esterase Large H (Negative) Urine RBC 6 H (0-5) /hpf Urine WBC 14 H (0-5) /hpf Urine Mucus Rare H (None) /hpf
[2023-03-31 20:59] LABS: Magnesium 1.8 mg/dL (1.5-2.4)
[2023-04-01 07:52] VITALS: BP 134/90; PULSE 69; RESP 20; TEMP 98.8
[2023-04-01] MEDS: methylPREDNISolone SOD SUCCIN 500 MG in SODIUM CHLORIDE 0.9% 100 ML IVPB SCH (09:07)
[2023-04-01] MEDS: CYANOCOBALAMIN 1,000 MCG/ML 1 ML VIAL IM SCH (09:08)
[2023-04-01] MEDS: ENOXAPARIN 40 MG/0.4 ML SYRINGE SQ SCH (09:08)
[2023-04-01] MEDS: DULoxetine HCL 60 MG CAPSULE.DR PO SCH (09:09)
[2023-04-01] MEDS: FOLIC ACID 1 MG TAB PO SCH (09:09)
[2023-04-01] MEDS: PANTOPRAZOLE 40 MG TABLET PO SCH (09:09)
--- NOTE | 2023-04-01 09:58 | P.PN ---
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 We have been asked to evaluate the patient for bradycardia. Patient has been brought into the hospital on 03/27 due to weakness and numbness to both upper and lower extremities. Patient has been on high-dose Solu-Medrol for MS exacerbation. Patient was noted to have bradycardia running as low as 43 while she was resting. We have asked the patient to ambulate this morning, resting heart rate was 56 and heart rate went to 91 with casual walking. EKG sinus bradycardia with no ST-T wave changes. Chest x-ray: No acute process WBC 12.8, hemoglobin 13.6, BUN 35 creatinine 1.9, blood sugar 149. Troponin negative 3. TSH 0.691. Drug screen positive for marijuana. Home cardiac medications: None 04/01 Patient is seen today in follow-up. No new concerns. Echocardiogram reveals EF 55-60%. No pulmonary hypertension. Results of been reviewed with the patient. Heart rate has been in the 60s overnight. Patient has been encouraged to follow up post discharge for Phys sleep study. She states she will be returning to [place] and we'll make sure that this is completed. Physical examination: Gen: This is a 37-year-old female. She is resting in bed and appears to be in no acute distress. VS: reviewed HEENT: Head is atraumatic, normocephalic. Pupils equal, round. Sclerae is anicteric. NECK: Supple. No JVD. LUNGS: Clear to auscultation. No wheezes or rhonchi. No intercostal retractions. HEART: Regular rate and rhythm. No murmur. ABDOMEN: Soft No tenderness. EXTREMITIES: No pedal edema. No calf tenderness. NEUROLOGICAL: Patient is awake, alert and oriented x3. Assessment: Asymptomatic bradycardia with normal chronotropic response to casual walking Acute kidney injury MS exacerbation Hypertension possibly due to steroids Plan: Patient had a normal chronotropic response to walking and is asymptomatic with bradycardia. Recommend outpatient sleep study for suspected obstructive sleep apnea--patient states that she will follow-up on this in [place] [facility] will sign off this case and follow on an as-needed basis. Please reconsult for any new concerns. Patient is cleared for discharge from cardiology. Nurse practitioner note has been reviewed, I agree with documented findings and plan of care. Patient was seen and examined. Objective - Vital Signs Vital signs: Vital Signs Temp 98.8 F 04/01/23 07:30 Pulse 69 04/01/23 07:30 Resp 20 04/01/23 07:30 BP 134/90 04/01/23 07:30 Pulse Ox 97 04/01/23 07:30 FiO2 Intake & Output 03/31/23 04/01/23 04/01/23 18:59 06:59 18:59 Intake Total 480 900 Output Total 1000 1400 Balance -520 -500 Intake: Intake, IV Titration 100 Amount methylPREDNISolone SOD 100 SUCCIN 500 mg In Sodium Chloride 0.9% 100 ml @ 100 mls/hr IVPB Q12HR ELAINE Rx#:[id number] Oral 480 800 Output: Urine 1000 1400 Other: Voiding Method Bedside Commode Bedside Commode Diaper Diaper External Catheter External Catheter - Labs CBC & Chem 7: 03/31/23 06:21 03/31/23 06:21 Labs: Abnormal Lab Results - Last 24 Hours (Table) 03/31/23 03/31/23 Range/Units 06:21 06:21 WBC 10.27 H (4.50-10.00) X 10*3/uL RDW 15.1 H (11.5-14.5) % Glucose 165 H (70-110) mg/dL Total Bilirubin 0.2 L (0.3-1.2) mg/dL ALT 65 H (8-44) U/L Total Protein 6.0 L (6.2-8.2) g/dL Albumin 3.7 L (3.8-4.9) g/dL
--- NOTE | 2023-04-01 13:53 | P.DS ---
Providers Date of admission: 03/27/23 20:13 Expected date of discharge: 04/01/23 Attending physician: Maribel Kamara MD Consults: 03/27/23 23:43 Consult Physician Urgent Consulting Provider: Jorden Pierson Consult Reason/Comments: MS flare Do you want consulting provider notified?: Yes 03/30/23 21:05 Consult Physician Routine Consulting Provider: Jose Swanson Consult Reason/Comments: bradycardia Do you want consulting provider notified?: Yes, Notify in am 03/31/23 09:22 Consult Physician Routine Consulting Provider: Hemalatha Hutchison Consult Reason/Comments: low heart rate- consult for sleep study per cardio Do you want consulting provider notified?: Yes Primary care physician: Stated None Hospital Course: Discharge Diagnosis: Acute exacerbation of MS with right-sided weakness Intractable headache Possible KEVIN Asymptomatic bradycardia Vitamin B12 deficiency Folate deficiency SHAILESH, undetermined etiology Hypomagnesemia, resolved Anxiety and depression Hospital Course: Patient is a 37-year-old female with known multiple sclerosis resulting with chronic right-sided weakness and footdrop, anxiety, and depression who presented to the emergency department due to generalized weakness, numbness, and myalgias. In the emergency department she underwent an extensive evaluation. Laboratory analysis was remarkable for hemoglobin of 16.1, chloride 108, bicarb 16, magnesium 1.3, and urine drug screen positive for marijuana. Chest x-ray showed no acute process. She was admitted for possible MS flare. Neurology was consulted. The patient was started on IV Solu-Medrol. She underwent a CT head and cervical spine showed no acute intracranial process and no evidence of cervical spine fracture with mild multilevel degenerative disc disease. She was seen by neurology was continued on high-dose Solu-Medrol. She underwent MRI of the brain which showed 2 areas of active demyelination with no evidence of acute or subacute CVA. She was continued on IV solumedrol. \She did have an episode of asymptomatic bradycardia overnight. Cardiology was consulted. Echocardiogram was within normal limits. There was concerns for possible obstructive sleep apnea and pulmonary was consulted. She is given information for outpatient polysomnogram. She does believe she may go back to [place] versus taking in [facility] [place] and she continued to do well and was determined stable for discharge home with complete a prednisone taper. Follow-up: She should follow up with a neurologist in 1-2 weeks, she should es tablish with a primary care physician. Her Cymbalta was refilled. Prednisone taper was ordered. She was also given information for [facility] MS program. Her Cymbalta was refilled on discharge. Patient seen and examined at bedside. Doing well. No complaints. Wants to go home Vital signs reviewed and stable. General: nontoxic, no distress, appears at stated age Cardiovascular: S1S2 reg, no murmur, positive posterior tibial pulse bilateral, Lungs: CTA bilateral, no rhonchi, no rales , no accessory muscle use Abdominal: soft, nontender to palpation, no guarding, no appreciable organ omegaly Ext: no gross muscle atrophy, no edema b/l lower extremities, no contractures Neuro: CN II-XI grossly intact, no focal neuro deficits Psych: Alert, oriented, appropriate affect A total of 37 minutes of time were spent preparing this complex discharge summary. Patient was discharged on 04/01/23. This dictation was prepared using [employer] voice recognition software. Though every attempt is made to correct errors during dictation some may still exist. Patient Condition at Discharge: Fair Plan - Discharge Summary Discharge Rx Participant: No New Discharge Prescriptions: New Cyanocobalamin [Vitamin B-12] 1,000 mcg PO DAILY #30 tab predniSONE [Deltasone] 0 mg PO DIRECTED #25 tab Folic Acid 1 mg PO DAILY #30 tab Pantoprazole [Protonix] 40 mg PO AC-BRKFST #30 tab Continue DULoxetine HCL [Cymbalta] 120 mg PO DAILY #60 cap Discharge Medication List Cyanocobalamin [Vitamin B-12] 1,000 mcg PO DAILY #30 tab 04/01/23 [Rx] DULoxetine HCL [Cymbalta] 120 mg PO DAILY #60 cap 04/01/23 [Rx] Folic Acid 1 mg PO DAILY #30 tab 04/01/23 [Rx] Pantoprazole [Protonix] 40 mg PO AC-BRKFST #30 tab 04/01/23 [Rx] predniSONE [Deltasone] 0 mg PO DIRECTED #25 tab 04/01/23 [Rx] Follow up Appointment(s)/Referral(s): Jose Frias MD [REFERRING] - (local neurologist, pt states she will make appointment when she gets home to [facility].) Phani Munguia MD [STAFF PHYSICIAN] - 1 Week (if you want to establish a primary care physician, pt states she will make appointment when she gets home to [facility].) Patient Instructions/Handouts: Multiple Sclerosis (DC), Hypomagnesemia (DC) Activity/Diet/Wound Care/Special Instructions: Activity: As tolerated Diet: Regular Special Instructions: [facility] neuro sciences To schedule an appointment with an expert, call Take Protonix until you complete the prednisone Discharge Disposition: HOME SELF-CARE
[2023-04-02] MEDS ORDERED: CYANOCOBALAMIN 500 MCG TAB PO SCH (09:00)
== END 2023-04-01 11:48 | disposition home or self-care (01) | DRG 59 ==
LOC: EC 14:18 → 5NMEDONC 20:13
PROVIDERS: ADMIT Internal Medicine; ATTEND Internal Medicine
DX: G35 Multiple sclerosis (principal); N17.9 Acute kidney failure, unspecified; I15.8 Other secondary hypertension; E87.8 Other disorders of electrolyte and fluid balance, not elsewhere classified; E66.01 Morbid (severe) obesity due to excess calories; F11.11 Opioid abuse, in remission; G81.91 Hemiplegia, unspecified affecting right dominant side; Z28.310 Unvaccinated for COVID-19; T38.0X5A Adverse effect of glucocorticoids and synthetic analogues, initial encounter; E53.8 Deficiency of other specified B group vitamins; E83.42 Hypomagnesemia; R00.1 Bradycardia, unspecified; G47.33 Obstructive sleep apnea (adult) (pediatric); M21.371 Foot drop, right foot; M50.30 Other cervical disc degeneration, unspecified cervical region; F32.A Depression, unspecified; F41.9 Anxiety disorder, unspecified; F12.90 Cannabis use, unspecified, uncomplicated; Z68.34 Body mass index [BMI] 34.0-34.9, adult; F17.210 Nicotine dependence, cigarettes, uncomplicated; Z71.6 Tobacco abuse counseling; R74.01 Elevation of levels of liver transaminase levels; Z79.899 Other long term (current) drug therapy; Z88.6 Allergy status to analgesic agent; Z88.8 Allergy status to other drugs, medicaments and biological substances
CPT/HCPCS: 36415; 70450; 70553; 71046; 72125; 76770; 80048; 80053; 80306; 80320; 81001; 82550; 82607; 82652; 82746; 83036; 83605; 83735; 84443; 84484; 84703; 85025; 85027; 93306; 96365; 96375; 99285